=== PATIENT | female | born 1940 | race Caucasian/White ===

== ENCOUNTER 2020-03-20 09:37 | Outpatient (CLI) | payer MEDICARE, SELFPAY ==
--- NOTE | ~2020-03-20 | DEXA_ITS ---
Bone Density Report Name: Carlene Sprague Age: 79 Sex: Female Ethnicity: White Date of : 1940 Indication: postmenopausal; height loss; prior fracture; hysterectomy; Referring Provider: Marina Jiang Study: Bone densitometry was performed. Exam Date: March 20, 2020 Accession number: [id number] Bone Density: Region BMD T-score Z-score Classification AP Spine (L1-L4) 0.991 -0.5 2.0 Normal Femoral Neck (Left) 0.624 -2.0 0.2 Osteopenia Total Hip (Left) 0.813 -1.1 0.9 Osteopenia Total Hip Bilateral Avg 0.796 -1.3 0.8 Osteopenia Femoral Neck (Right) 0.701 -1.3 0.9 Osteopenia Total Hip (Right) 0.777 -1.4 0.6 Osteopenia World Health Organization criteria for BMD impression classify patients as: Normal (T-score at or above -1.0), Osteopenia (T-score between -1.0 and -2.5), or Osteoporosis (T-score at or below -2.5). 10-year Fracture Risk(1): Major Osteoporotic Fracture 21% Hip Fracture 7.9% Reported Risk Factors: [place] (), Neck BMD=0.624, BMI=29.3, previous fracture, smoking (1) FRAX(R) Version 3.08. Fracture probability calculated for an untreated patient. Fracture probability may be lower if the patient has received treatment. Clinical Information Provided by Patient: Has had a low trauma fracture Smokes Has used the following medications: Vitamin D Has the following medical conditions: Hysterectomy Patient maximum height was 65 Menopause Age: 52 Drinks caffeinated beverages Onset of menses at age 15 Number of children 2 Impression: The patient has low bone mass, based on the Left Femoral Neck T-score. The patient has an estimated ten-year risk of hip fracture of 7.9% and an estimated ten-year risk of major fracture of 21%, based on the WHO FRAX algorithm. The patient has risk factors, including: smoking, previous fracture. Discussion: BONE DENSITY IS LOW AT ONE OR MORE SKELETAL SITES. THE PATIENT'S BMD AND CLINICAL RISK FACTORS CONTRIBUTE TO THIS PATIENT'S HIGH RISK OF FRACTURE. This patient's lowest T-score is low at one or more skeletal sites. It meets the World Health Organization's (WHO) criteria for ?low bone mass? (T-score between -1.0 and -2.5). The patient's 10-year risk of hip fracture and 10 year risk of a major osteoporotic fracture as calculated by FRAX exceeds the threshold where pharmacological therapy is recommended by the National Osteoporosis Foundation (NOF). However, all treatment decisions require clinical judgment and consideration of individual patient factors, including patient preferences, comorbidities, previous drug use, risk factors not captured in the FRAX model (e.g., frailty, falls, vitamin D deficiency, increased bone turnover, interval significant decline in bone density) and possible under or overestimation of fracture risk by FRAX. The patie
== END 2020-03-20 09:38 | disposition home or self-care (01) ==
LOC: ANHIMG 09:48
PROVIDERS: Visit Provider Family Medicine
DX: Z13.820 Encounter for screening for osteoporosis (principal); Z78.0 Asymptomatic menopausal state; M85.852 Other specified disorders of bone density and structure, left thigh; M85.851 Other specified disorders of bone density and structure, right thigh
CPT/HCPCS: 77080

== ENCOUNTER 2020-03-24 08:19 | Outpatient (CLI) | payer MEDICARE, SELFPAY ==
--- NOTE | 2020-03-24 09:05 | ECHO_ITS ---
Patient Info Name: Carlene Sprague Age: 79 years : 1940 Gender: Female Ht: 64 in Wt: 169 lbs BSA: 1.88 m2 HR: 83 bpm BP: 164 / 95 mmHg Technical Quality: Good Exam Date: 03/24/2020 9:22 AM Exam Location: [facility] Patient Status: Outpatient Admit Date: 03/24/2020 Staff Ordering Physician: Marina Jiang MD Die Sizer: Leonid Najera RDCS, RT Attending Provider: Marina Jiang MD Referring Physician: Apolinar VILLANUEVA; Exam Type: CA echo doppler color flow Study Info Indications I10 - Essential (primary) hypertension Complete two-dimensional, color flow and Doppler transthoracic echocardiogram is performed. Summary 1. Left ventricular chamber dimension is normal. 2. Left ventricular systolic function is normal, estimated at 60-65%. 3. The left ventricular diastolic function is grade I diastolic dysfunction. 4. E/e' 8 is minimally elevated. 5. Global longitudinal strain is slightly abnormal at -16.9%. 6. The mitral valve has mildly calcified annulus. 7. There is trace tricuspid valve regurgitation. Left Ventricle E/e' 8 is minimally elevated. Global longitudinal strain is slightly abnormal at -16.9%. Left ventricular chamber dimension is normal. Left ventricular systolic function is normal, estimated at 60-65%. The left ventricular diastolic function is grade I diastolic dysfunction. Right Ventricle Right ventricular chamber dimension is normal. Right ventricular systolic function is normal. Left Atria Left atrial chamber dimension is normal. Right Atria Right atrial chamber dimension is normal. Aortic Valve The aortic valve is trileaflet. There is no aortic valve stenosis. There is no aortic valve regurgitation. Pulmonic Valve There is no pulmonic regurgitation. Mitral Valve The mitral valve has mildly calcified annulus. There is no mitral valve stenosis. There is no mitral valve regurgitation. Tricuspid Valve There is trace tricuspid valve regurgitation. RVSP is not calculated due to an inadequate TR jet. Pericardium/Pleural There is no pericardial effusion. Inferior Vena Cava Normal inferior vena cava with >50% collapse upon inspiration consistent with normal right atrial pressure, 5 mmHg. Aorta The aortic root size at the sinus of Valsalva is normal. Left Ventricular Outflow Tract Name Value Normal LVOT 2D LVOT Diameter 2.0 cm LVOT Doppler LVOT Peak Gradient 4 mmHg LVOT Mean Gradient 2 mmHg LVOT VTI 22 cm LVOT VTI/AV VTI Ratio 1.2 LVOT Stroke Volume 69 ml LVOT CO 5.7 l/min LVOT CI 3.0 l/min/m2 Mitral Valve Name Value Normal MV Doppler MV Decel [place]
== END 2020-03-24 08:20 | disposition home or self-care (01) ==
PROVIDERS: Visit Provider Family Medicine
DX: I11.0 Hypertensive heart disease with heart failure (principal); E78.5 Hyperlipidemia, unspecified
CPT/HCPCS: 93306

== ENCOUNTER 2021-03-16 10:12 | Outpatient (CLI) | payer MEDICARE, SELFPAY ==
--- NOTE | ~2021-03-16 | MM_ITS ---
EXAMINATION: MM screening victoria BI w ciara HISTORY: Screening mammogram, family history of breast cancer in her sister. TECHNIQUE: Craniocaudal and mediolateral oblique 3-D tomosynthesis images were obtained and synthetic 2-D images were generated. CAD analysis was submitted and interpreted. COMPARISON: 06/26/2018, 07/04/2017, 06/22/2017, 06/14/2016 BREAST PARENCHYMAL COMPOSITION: There are scattered areas of fibroglandular density. FINDINGS: RIGHT BREAST: Asymmetry is present in the middle third of inner breast nipple,. LEFT BREAST: There is no evidence of suspicious mass, calcification, or architectural distortion to s uggest malignancy. There has been no significant interval change. IMPRESSION: 1. Right breast asymmetry. 2. Additional mammographic views and possible breast ultrasound are recommended. BI-RADS Category 0: Incomplete: Needs additional imaging evaluation. Reviewed, dictated and finalized at location A. IMPRESSION: 1. Right breast asymmetry. 2. Additional mammographic views and possible breast ultrasound are recommended . BI-RADS Category 0: Incomplete: Needs additional imaging evaluation.
== END 2021-03-16 10:13 | disposition home or self-care (01) ==
LOC: ANHIMG 10:17
PROVIDERS: PCP Family Medicine; Visit Provider Family Medicine
DX: Z12.31 Encounter for screening mammogram for malignant neoplasm of breast (principal); R92.8 Other abnormal and inconclusive findings on diagnostic imaging of breast
CPT/HCPCS: 77063; 77067

== ENCOUNTER 2021-04-09 14:20 | Emergency (ER) | payer MEDICARE, SELFPAY ==
[2021-04-09] VITALS (7 sets, daily range): BP systolic 88–130; BP diastolic 55–91; PULSE 58–67; RESP 14–17; TEMP 36.5–36.6; O2SAT 100
--- NOTE | ~2021-04-09 | CT_ITS ---
EXAMINATION: CT abdomen pelvis w con DATE: 04/09/2021 18:06 INDICATION: Epigastric pain TECHNIQUE: Computed tomography (CT) of the abdomen and pelvis was performed without intravenous contr ast. The dose-length product was 441.46 mGy-cm. Automated exposure control and iterative reconstructi on technique were employed. COMPARISON: None. FINDINGS: Lung bases are unremarkable. Heart size normal. No significant pleural or pericardial effus ion. Small hiatal hernia with thickening of the distal aspect of the esophagus, suspicious for esopha gitis. There is 2.6 cm left adrenal mass. There is jade-SMA and periceliac lymphadenopathy. There is left periaortic lymphadenopathy superior to the left renal artery measuring 1.6 cm. Gallbladder conta ins stones or sludge. The liver, spleen, right adrenal gland and kidneys are unremarkable. Gallbladde r is present. Normal appendix. Status post hysterectomy. No abnormal pelvic masses or fluid collectio ns. There is demineralization. There is lytic lesion in the right pelvis. There are heterogeneous are as of focal demineralization in the pelvis, suspicious for ostial lysis.. IMPRESSION: 1. Abnormal thickening of the distal esophagus, suspicious for esophagitis, possibly secondary to ref lux. 2: Upper abdominal lymphadenopathy, nonspecific. 3: At least one discrete and possible additional lytic lesions of the pelvis, suspicious for myeloma or metastatic disease. 4: Left adrenal mass measuring 2.6 cm. Recommend correlation with MRI. Reviewed, dictated and finalized at location A. IMPRESSION: 1. Abnormal thickening of the distal esophagus, suspicious for esophagitis, pos sibly secondary to reflux. 2: Upper abdominal lymphadenopathy, nonspecific. 3: At least one discrete and possible additional lytic lesions of the pelvis, s uspicious for myeloma or metastatic disease. 4: Left adrenal mass measuring 2.6 cm. Recommend correlation with MRI.
[2021-04-09 17:20] LABS: Basophils Percent Auto 0.3 % (0.2-1.2); Eosinophils Absolute Auto 0.1 K/mm3 (0-0.3); Eosinophils Percent Auto 1.5 % (0-4.4); Hematocrit 42.8 % (37.0-47.0); Hemoglobin 14.3 g/dL (12.0-15.0); Immature Granulocyte Absolute 0.03 K/mm3 (0.00-0.031); Immature Granulocyte Percent A 0.3 % (0-0.5); Lymphocytes Absolute Auto 1.97 K/mm3 (0.9-3.2); Lymphocytes Percent Auto 22.7 % (18.3-44.2); Mean Corpuscular HGB Conc 33.4 g/dl (32-36); Mean Corpuscular Hemoglobin 30.4 pg (26-34); Mean Corpuscular Volume 90.9 fl (80-100); Mean Platelet Volume 8.5 fl (7.4-10.4); Monocytes Absolute Auto 0.6 K/mm3 (0.1-0.6); Monocytes Percent Auto 6.9 % (2.6-8.5); Neutrophils Absolute Auto 5.9 K/mm3 (1.3-6.7); Neutrophils Percent Auto 68.3 % (45.5-73.1); Platelet Count Result 233 k/mm3 (150-375); Red Blood Count 4.71 M/mm3 (4.2-5.4); Red Cell Distribution Width 12.3 % (11.5-14.5); White Blood Count 8.7 K/mm3 (4.5-10.0)
[2021-04-09 17:34] LABS: Alanine Aminotransferase 12 U/L (4-35); Albumin Level 4.4 g/dL (3.5-5.1); Alkaline Phosphatase 81 U/L (38-126); Anion Gap 8 mmol/L (8-16); Aspartate Amino Transferase 25 U/L (14-36); Bilirubin,Total 0.7 mg/dL (0.2-1.3); Blood Urea Nitrogen 12 mg/dL (7-17); Calcium 10.1 mg/dL (8.4-10.2); Carbon Dioxide 30 mmol/L (22-30); Chloride 98 mmol/L (98-107); Estimated CRCL calculation 55 ml/min; Estimated Glomerular Filt Rate > 60; Glucose 103 mg/dL (65-105); Lipase 50 U/L (23-300); Potassium 4.2 mmol/L (3.4-5.0); Sodium 136 mmol/L (137-145)
--- NOTE | 2021-04-09 17:52 | PC.NURSE ---
Dr Shell aware of orthostatic BPs. Verbal order for one liter of NS, hung. Pt taken to CT scan, off floor.
--- NOTE | 2021-04-09 17:53 | PC.NURSE ---
Pt unable to void. Dr Shell aware, OK to wait for completion of NS bolus
[2021-04-09] MEDS: SODIUM CHLORIDE 0.9% IV 1,000 ML 1000 ML (17:54)
--- NOTE | 2021-04-09 18:47 | ED.GENADULT ---
HPI - General Adult General Chief complaint: Nausea/Vomiting/Diarrhea Stated complaint: vomiting Time Seen by Provider: 04/09/21 16:42 Source: patient, family and RN notes reviewed Mode of arrival: ambulatory Limitations: no limitations History of Present Illness HPI narrative: Patient is 80 years old white female presented to the ED with intermittent epigastric pain and intermittent vomiting, food sometimes dog and that Ayla sawdust with retrosternal discomfort lasted for few seconds, minutes or hours. Scheduled to have EGD by Dr. Ryan next week. Patient denies any fever, chills, shortness of breath or back pain. Patient is fully vaccinated for COVID-19. Currently patient is able to keep fluid down in the emergency room. History of GERD, on Nexium 40 mg once a day Related Data Home Medications Medication Instructions Recorded Confirmed albuterol sulfate 90 mcg/actuation 1 puff INHALATION Q4H PRN 09/08/20 03/30/21 aerosol inhaler cetirizine 10 mg tablet 10 mg PO DAILY tablet 09/08/20 03/30/21 aspirin 81 mg tablet,delayed 81 mg PO DAILY 03/09/21 03/30/21 release chlorthalidone 25 mg tablet 25 mg PO DAILY tablet 03/09/21 03/30/21 cholecalciferol (vitamin D3) 125 mcg PO DAILY 03/30/21 03/30/21 cyclobenzaprine 10 mg PO .qhs prn PRN 03/30/21 03/30/21 esomeprazole magnesium 40 mg PO DAILY 03/30/21 03/30/21 esomeprazole magnesium [Nexium] 40 mg PO DAILY 04/09/21 04/09/21 omega-3 fatty acids 1,500 mg PO DAILY 04/09/21 Allergies Allergy/AdvReac Type Severity Reaction Status Date / Time No Known Allergies Allergy Verified 04/09/21 14:42 Review of Systems Review of Systems: Narrative: CONSTITUTIONAL: Denies fever, chills, or sweats. EYES: Denies visual changes, redness, or discharge. ENT: Denies rhinorrhea, congestion, sore throat, or otalgia. CARDIOVASCULAR: Denies chest pain, palpitations, or edema. RESPIRATORY: Denies cough or dyspnea. GASTROINTESTINAL: Denies abdominal pain, nausea, vomiting, or diarrhea. GENITOURINARY: Denies dysuria or hematuria. SKIN: Denies rash or itching. MUSCULOSKELETAL: Denies back pain, joint pain, or myalgia. NEUROLOGIC: Denies headache, numbness, or weakness. PSYCHIATRIC: Denies anxiety or depression. [facility] Past Medical History Medical History Chronic neck and back pain Colon cancer screening Dysphagia Environmental allergies Epigastric pain Essential (primary) hypertension (~1994) GERD (gastroesophageal reflux disease) Hyperlipidemia, acquired Osteopenia of multiple sites Dexa scan 03/20/2020 Shingles (herpes zoster) polyneuropathy (~1997) Transient ischemic attack on medication 04/2016 Unspecified asthma, uncomplicated (~1983) Vitamin D deficiency Surgical History Surgical History S/P cataract surgery (~2014) S/P complete hysterectomy (~1994) S/p total knee replacement, bilateral (~2011) S/P urological surgery (~2014) Transobturator taping with cystoscopy. Family History Family History Father Hypertension Family history of diabetes mellitus in first degree relative Mother Hypertension Family history of diabetes mellitus in first degree relative Sibling Family history of osteoarthritis Family history of diabetes mellitus in first degree relative Social History Social History Smoking packs per day: 1 Smoking cigarettes per day: 20.0 Years smoked: 52 Smoking pack-years: 52.00 Smoking status: Former smoker Smoking end date: 10/02/11 Alcohol intake: current Alcohol use details: sparingly Substance use: never Substance use type: does not use Spiritual care concerns: No Exam Narrative: Exam Narrative: General appearance: Well-developed, well-nourished Skin: Normal color Head: Normocephalic, nontraumatic Eyes: Clear conjunc
== END 2021-04-09 19:32 | disposition home or self-care (01) ==
PROVIDERS: Emergency Provider Emergency Medicine; PCP Family Medicine
DX: K20.90 Esophagitis, unspecified without bleeding (principal); E27.9 Disorder of adrenal gland, unspecified; C79.51 Secondary malignant neoplasm of bone; Z79.82 Long term (current) use of aspirin; I10 Essential (primary) hypertension; K21.9 Gastro-esophageal reflux disease without esophagitis; E78.5 Hyperlipidemia, unspecified; M85.89 Other specified disorders of bone density and structure, multiple sites; Z86.73 Personal history of transient ischemic attack (TIA), and cerebral infarction without residual deficits; J45.909 Unspecified asthma, uncomplicated; E55.9 Vitamin D deficiency, unspecified; Z87.891 Personal history of nicotine dependence
CPT/HCPCS: 36415; 74177; 80053; 83690; 85025; 96360; 99284; J7030; Q9967

== ENCOUNTER 2021-04-13 02:39 | Day surgery (SDC) | payer MEDICARE, SELFPAY ==
[2021-03-30 10:33] VITALS: BMI 27.4
[2021-04-13 07:15] VITALS: BP 139/87; PULSE 62; RESP 18; TEMP 36.2; O2SAT 100
[2021-04-13] MEDS: LACTATED RINGERS 1,000 ML 150 ML IV CONT (07:30)
--- NOTE | 2021-04-13 08:05 | WPDANESEPPF ---
Anes - Initial Pre Proc Eval Procedure: Operation Date: 04/13/21 08:30 Proposed Procedures p Esophagogastroduodenoscopy - Maximiliano Lowe MD Date/Time: 04/13/21 08:05 Surgeon: Maximiliano Lowe MD Pre Op Diagnosis: dysphagia Patient Data Age: 80 Gender: F Height: 1.63 m Weight: 71.8 kg Last Vital Signs Temp 36.2 C L 04/13/21 07:15 Pulse 62 04/13/21 07:15 Resp 18 04/13/21 07:15 BP 139/87 04/13/21 07:15 Pulse Ox 100 04/13/21 07:15 Allergies Allergy/AdvReac Type Severity Reaction Status Date / Time No Known Allergies Allergy Verified 04/13/21 07:13 Home Medications Medication Instructions Recorded Confirmed Type fluticasone propionate 50 2 spray NASAL DAILY #15.8 ml 11/18/19 03/30/21 Rx mcg/actuation nasal spray,suspension simvastatin 20 mg tablet 20 mg PO DAILY #90 tablet 05/13/20 03/30/21 Rx albuterol sulfate 90 mcg/actuation 1 puff INHALATION Q4H PRN 09/08/20 03/30/21 History aerosol inhaler cetirizine 10 mg tablet 10 mg PO DAILY tablet 09/08/20 03/30/21 History lisinopril 10 mg tablet 10 mg PO DAILY #90 tablet 02/15/21 03/30/21 Rx metoprolol tartrate 25 mg tablet 25 mg PO BID #180 tablet 02/15/21 04/13/21 Rx aspirin 81 mg tablet,delayed 81 mg PO DAILY 03/09/21 03/30/21 History release chlorthalidone 25 mg tablet 25 mg PO DAILY tablet 03/09/21 03/30/21 History potassium chloride 20 mEq 20 meq PO DAILY #90 tablet 03/19/21 03/30/21 Rx tablet,extended release cholecalciferol (vitamin D3) 125 mcg PO DAILY 03/30/21 03/30/21 History cyclobenzaprine 10 mg PO .qhs prn PRN 03/30/21 03/30/21 History esomeprazole magnesium 40 mg PO DAILY 03/30/21 03/30/21 History esomeprazole magnesium [Nexium] 40 mg PO DAILY 04/09/21 04/09/21 History omega-3 fatty acids 1,500 mg PO DAILY 04/09/21 History Patient hx anesthesia problems: none Family hx anesthesia problems: none PMFSH Past Medical History Medical History Chronic neck and back pain Colon cancer screening Dysphagia Environmental allergies Epigastric pain Essential (primary) hypertension (~1994) GERD (gastroesophageal reflux disease) Hyperlipidemia, acquired Osteopenia of multiple sites Dexa scan 03/20/2020 Shingles (herpes zoster) polyneuropathy (~1997) Transient ischemic attack on medication 04/2016 Unspecified asthma, uncomplicated (~1983) Vitamin D deficiency Surgical History Surgical History S/P cataract surgery (~2014) S/P complete hysterectomy (~1994) S/p total knee replacement, bilateral (~2011) S/P urological surgery (~2014) Transobturator taping with cystoscopy. Family History Family History Father Hypertension Family history of diabetes mellitus in first degree relative Mother Hypertension Family history of diabetes mellitus in first degree relative Sibling Family history of osteoarthritis Family history of diabetes mellitus in first degree relative Social History Social History Smoking packs per day: 1 Smoking cigarettes per day: 20.0 Years smoked: 52 Smoking pack-years: 52.00 Smoking status: Former smoker Smoking end date: 10/02/11 Alcohol intake: current Alcohol use details: sparingly Substance use: never Substance use type: does not use Living arrangements: alone Spiritual care concerns: No Anes - Eval Final PreProcedure Day of Procedure 04/13/21 08:05 Patient weight: overweight Heart: regular rate and rhythm Lungs: clear to auscultation and normal air movement Airway: Mallampati scale class III Neurological: alert and oriented Last oral intake: >/= 8 hours ASA classification: III Emergent: no Anesthetic plan: proceed Anesthesia type and monitoring: general GIVS and standard monitoring Informed Consent: The patient's anes
--- NOTE | 2021-04-13 08:43 | PM.HPGS ---
History of Present Illness History of Present Illness Consent: Risks, benefits, and alternatives have been discussed and questions answered. Patient agrees to proceed with procedure. Chief complaint: dysphagia Narrative: Carlene Sprague is a 80 year old female with gerd on nexium but progressive dysphagia to solids, actually recently came to ER, CT scan showed esophagitis. Never had EGD Review of Systems Constitutional: Constitutional: Denies headache(s) and Denies weakness Eyes: Eyes: Denies blurry vision ENT: Reports Normal hearing present, Denies headache(s) and Denies neck pain Cardiovascular: Cardiovascular: Denies chest pain and Denies dyspnea Respiratory: Respiratory: Denies dyspnea Gastrointestinal: Gastrointestinal: Reports no additional gastrointestinal complaints Genitourinary: Genitourinary: Denies dysuria Musculoskeletal: Musculoskeletal: Denies neck pain Integumentary/Breasts: Skin/Breast: Denies dry skin Neurologic: Reports Normal hearing present, Denies headache(s) and Denies weakness Psychiatric: Psychiatric: Denies anxiety Endocrine: Endocrine: Denies change in body appearance Hematologic/Lymphatic: Hematologic/Lymphatic: Denies easy bleeding Allergic/Immunologic: Allergic/Immunologic: Denies urticaria PMFSH Past Medical History Medical History Chronic neck and back pain Colon cancer screening Dysphagia Environmental allergies Epigastric pain Essential (primary) hypertension (~1994) GERD (gastroesophageal reflux disease) Hyperlipidemia, acquired Osteopenia of multiple sites Dexa scan 03/20/2020 Shingles (herpes zoster) polyneuropathy (~1997) Transient ischemic attack on medication 04/2016 Unspecified asthma, uncomplicated (~1983) Vitamin D deficiency Surgical History Surgical History S/P cataract surgery (~2014) S/P complete hysterectomy (~1994) S/p total knee replacement, bilateral (~2011) S/P urological surgery (~2014) Transobturator taping with cystoscopy. Family History Family History Father Hypertension Family history of diabetes mellitus in first degree relative Mother Hypertension Family history of diabetes mellitus in first degree relative Sibling Family history of osteoarthritis Family history of diabetes mellitus in first degree relative Social History Social History Smoking packs per day: 1 Smoking cigarettes per day: 20.0 Years smoked: 52 Smoking pack-years: 52.00 Smoking status: Former smoker Smoking end date: 10/02/11 Alcohol intake: current Alcohol use details: sparingly Substance use: never Substance use type: does not use Living arrangements: alone Spiritual care concerns: No Meds Home Medications and Allergies Home Medications Medication Instructions Recorded Confirmed Type fluticasone propionate 50 2 spray NASAL DAILY #15.8 ml 11/18/19 03/30/21 Rx mcg/actuation nasal spray,suspension simvastatin 20 mg tablet 20 mg PO DAILY #90 tablet 05/13/20 03/30/21 Rx albuterol sulfate 90 mcg/actuation 1 puff INHALATION Q4H PRN 09/08/20 03/30/21 History aerosol inhaler cetirizine 10 mg tablet 10 mg PO DAILY tablet 09/08/20 03/30/21 History lisinopril 10 mg tablet 10 mg PO DAILY #90 tablet 02/15/21 03/30/21 Rx metoprolol tartrate 25 mg tablet 25 mg PO BID #180 tablet 02/15/21 04/13/21 Rx aspirin 81 mg tablet,delayed 81 mg PO DAILY 03/09/21 03/30/21 History release chlorthalidone 25 mg tablet 25 mg PO DAILY tablet 03/09/21 03/30/21 History potassium chloride 20 mEq 20 meq PO DAILY #90 tablet 03/19/21 03/30/21 Rx tablet,extended release cholecalciferol (vitamin D3) 125 mcg PO DAILY 03/30/21 03/30/21 History cyclobenzaprine 10 mg PO .qhs prn PRN 03/30/21 03/30/21 History esomeprazole magnesium 40 mg PO NGHIA
[2021-04-13 09:10] VITALS: BP 93/49; PULSE 59; RESP 28; O2SAT 100
[2021-04-13 09:20] VITALS: BP 126/58; PULSE 55; RESP 16; O2SAT 99
[2021-04-13 09:30] VITALS: BP 146/65; PULSE 52; RESP 19; O2SAT 99
== END 2021-04-13 09:51 | disposition home or self-care (01) ==
PROVIDERS: PCP Family Medicine; Visit Provider Internal Medicine Gastroenterology
PROC: 0DJ08ZZ Inspection of Upper Intestinal Tract, Via Natural or Artificial Opening Endoscopic (ICD-10-PCS; CPT 43235; principal; 2021-04-13 08:30)
DX: C15.5 Malignant neoplasm of lower third of esophagus (principal); K44.9 Diaphragmatic hernia without obstruction or gangrene; K21.00 Gastro-esophageal reflux disease with esophagitis, without bleeding; R13.10 Dysphagia, unspecified; E78.5 Hyperlipidemia, unspecified; I10 Essential (primary) hypertension; Z86.73 Personal history of transient ischemic attack (TIA), and cerebral infarction without residual deficits; E55.9 Vitamin D deficiency, unspecified; J45.909 Unspecified asthma, uncomplicated; Z79.51 Long term (current) use of inhaled steroids; Z79.82 Long term (current) use of aspirin; Z87.891 Personal history of nicotine dependence
CPT/HCPCS: 43249; 88305; 88342; C1726; J2001; J2704; J7120

== ENCOUNTER 2021-05-09 14:42 | Observation (INO) | payer MEDICARE, SELFPAY ==
[2021-05-09] VITALS (7 sets, daily range): BP systolic 90–132; BP diastolic 40–92; PULSE 67–74; RESP 16–18; TEMP 36.2–36.7; O2SAT 97–100; BMI 24.7
--- NOTE | ~2021-05-09 | CT_ITS ---
EXAMINATION: CT biopsy bone deep DATE: 05/11/2021 13:25 INDICATION: Lytic lesion in right ilium. TECHNIQUE: The procedure including the risks, benefits, and alternatives was discussed with the patie nt. Risks discussed included bleeding and infection. The patient verbalized understanding of the risk s and agreed to proceed. The skin overlying the right ilium was prepped and draped in usual sterile fashion. Anesthetic was administered with 1% lidocaine subcutaneously. An 11-gauge needle was insert ed into the right ilium under CT guidance. The stylet was removed, and an 18-gauge core biopsy needle was used to acquire 3 samples. The mA was adjusted according to patient size. Iterative reconstructi on technique was employed. The dose-length product was 179.88 mGy-cm. The needle was removed and the entry site was cleaned and dressed. There were no immediate complications. FINDINGS: CT images demonstrate the outer needle tip adjacent to a 2.6 cm lytic lesion in right ilium . IMPRESSION: 1. CT-guided core needle biopsy of a 2.6 cm lytic lesion in right ilium, worsened from 1.8 cm on 04/09. Reviewed, dictated and finalized at location A. IMPRESSION: 1. CT-guided core needle biopsy of a 2.6 cm lytic lesion in right ilium, worse jolly from 1.8 cm on 04/09/2021.
--- NOTE | ~2021-05-09 | XR_ITS ---
EXAMINATION: XR fl guide central line place DATE: 05/11/2021 14:12 INDICATION: Port catheter insertion TECHNIQUE: A single fluoroscopic spot image of the upper chest was obtained during procedure performe d by Dr. Wilder. Radiologist was not present for the imaging or procedure. The amount of fluoroscopy time used during this procedure was 0.3 minutes. FINDINGS: Right internal jugular central venous port catheter with distal tip extending at least to t he caudal superior vena cava with distal tip extending below the inferior margin of the [id number] . No pneumothorax at the bilateral upper lung zones. IMPRESSION: 1. Right internal jugular central venous catheter which extends to at least the inferior vena cava wi th distal tip not visualized. Reviewed, dictated and finalized at location A. IMPRESSION: 1. Right internal jugular central venous catheter which extends to at least the inferior vena cava with distal tip not visualized.
--- NOTE | ~2021-05-09 | XR_ITS ---
EXAMINATION: XR chest port-a-cath/central INDICATION: Port-A-Cath insertion TECHNIQUE: Portable AP chest at 1436 hours COMPARISON: 03/11/2016 FINDINGS: A right internal jugular Port-A-Cath has been inserted which ends with its tip in the midsu perior vena cava. There is no pneumothorax. The lungs are free of acute opacities. The cardiomediasti nal silhouette is normal. There is levocurvature of the upper thoracic spine. IMPRESSION: 1. Right internal jugular Port-A-Cath insertion, no pneumothorax, no acute cardiopulmonary abnormalit y. Reviewed, dictated and finalized at location B. IMPRESSION: 1. Right internal jugular Port-A-Cath insertion, no pneumothorax, no acute card iopulmonary abnormality.
[2021-05-09 15:31] LABS: Basophils Percent Auto 0.4 % (0.2-1.2); Eosinophils Absolute Auto 0.2 K/mm3 (0-0.3); Eosinophils Percent Auto 2.7 % (0-4.4); Hematocrit 41.8 % (37.0-47.0); Hemoglobin 14.1 g/dL (12.0-15.0); Immature Granulocyte Absolute 0.03 K/mm3 (0.00-0.031); Immature Granulocyte Percent A 0.4 % (0-0.5); Lymphocytes Absolute Auto 1.41 K/mm3 (0.9-3.2); Lymphocytes Percent Auto 19.2 % (18.3-44.2); Mean Corpuscular HGB Conc 33.7 g/dl (32-36); Mean Corpuscular Hemoglobin 29.9 pg (26-34); Mean Corpuscular Volume 88.7 fl (80-100); Mean Platelet Volume 8.5 fl (7.4-10.4); Monocytes Absolute Auto 0.5 K/mm3 (0.1-0.6); Monocytes Percent Auto 7.1 % (2.6-8.5); Neutrophils Absolute Auto 5.2 K/mm3 (1.3-6.7); Neutrophils Percent Auto 70.2 % (45.5-73.1); Platelet Count Result 257 k/mm3 (150-375); Red Blood Count 4.71 M/mm3 (4.2-5.4); Red Cell Distribution Width 11.9 % (11.5-14.5); White Blood Count 7.3 K/mm3 (4.5-10.0)
[2021-05-09 15:43] LABS: Alanine Aminotransferase 14 U/L (4-35); Albumin Level 4.2 g/dL (3.5-5.1); Alkaline Phosphatase 95 U/L (38-126); Anion Gap 11 mmol/L (8-16); Aspartate Amino Transferase 27 U/L (14-36); Bilirubin,Total 0.5 mg/dL (0.2-1.3); Blood Urea Nitrogen 8 mg/dL (7-17); Calcium 10.3 mg/dL (8.4-10.2); Carbon Dioxide 29 mmol/L (22-30); Chloride 95 mmol/L (98-107); Estimated CRCL calculation 61 ml/min; Estimated Glomerular Filt Rate > 60; Glucose 108 mg/dL (65-110); Lipase 44 U/L (23-300); Potassium 3.6 mmol/L (3.4-5.0); Sodium 135 mmol/L (137-145)
--- NOTE | 2021-05-09 17:19 | PC.NURSE ---
Patient states she is still unable to urinate because there is nothing in me.
--- NOTE | 2021-05-09 18:35 | ED.NAVMDI ---
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 intake due to difficulty swallowing even though she is on a liquid diet Additionally she spits up or coughs up or vomits mucousy saliva and residual food several times a day Related Data Home Medications Medication Instructions Recorded Confirmed albuterol sulfate 90 mcg/actuation 1 puff INHALATION Q4H PRN 09/08/20 03/30/21 aerosol inhaler cetirizine 10 mg tablet 10 mg PO DAILY tablet 09/08/20 03/30/21 aspirin 81 mg tablet,delayed 81 mg PO DAILY 03/09/21 03/30/21 release chlorthalidone 25 mg tablet 25 mg PO DAILY tablet 03/09/21 03/30/21 cholecalciferol (vitamin D3) 125 mcg PO DAILY 03/30/21 03/30/21 cyclobenzaprine 10 mg PO .qhs prn PRN 03/30/21 03/30/21 esomeprazole magnesium 40 mg PO DAILY 03/30/21 03/30/21 omega-3 fatty acids 1,500 mg PO DAILY 04/09/21 Allergies Allergy/AdvReac Type Severity Reaction Status Date / Time No Known Allergies Allergy Verified 04/13/21 07:13 Review of Systems Review of Systems: All systems reviewed & are unremarkable except as noted in HPI and below Constitutional: Constitutional: Reports no additional constitutional complaints, Denies chills, Reports fatigue, Denies fever(s), Denies headache(s) and Reports weakness Eyes: Eyes: Reports no additional eye complaints and Denies change in vision ENT: Denies headache(s) and Denies sore throat Cardiovascular: Cardiovascular: Denies chest pain and Denies dyspnea Respiratory: Respiratory: Denies cough and Denies dyspnea Gastrointestinal: Gastrointestinal: Denies abdominal pain, Reports heartburn, Denies diarrhea, Reports nausea and Reports vomiting Genitourinary: Genitourinary: Denies urinary frequency and Denies dysuria Musculoskeletal: Musculoskeletal: Denies deformity, Denies arthralgias, Denies joint swelling and Denies numbness Integumentary/Breasts: Skin/Breast: Denies rash and Denies wounds Neurologic: Denies headache(s), Denies focal weakness and Denies numbness Psychiatric: Psychiatric: Reports no additional psychiatric complaints Endocrine: Endocrine: Reports no additional endocrine complaints Hematologic/Lymphatic: Hematologic/Lymphatic: Reports no additional hematologic/lymphatic complaints Allergic/Immunologic: Allergic/Immunologic: Reports no additional allergic/immunologic complaints [facility] Past Medical History Medical History (Updated 05/09/21 @ 18:41 by Manas Ardon MD) Chronic neck and back pain Colon cancer screening Dysphagia Environmental allergies Epigastric pain Esophageal mass Essential (primary) hypertension (~1994) GERD (gastroesophageal reflux disease) Hyperlipidemia, acquired Osteopenia of multiple sites Dexa scan 03/20/2020 Shingles (herpes zoster) polyneuropathy (~1997) Transient ischemic attack on medication 04/2016 Unspecified asthma, uncomplicated (~1983) Vitamin D deficiency Surgical History Surgical History S/P cataract surgery (~2014) S/P complete hysterectomy (~1994) S/p total knee replacement, bilateral (~2011) S/P urological surgery (~2014) Transobturator taping with cystoscopy. Family History Family History Alyssia
--- NOTE | 2021-05-09 20:16 | PC.NURSE ---
pt states she in unable to urinate at this time.
--- NOTE | 2021-05-09 21:54 | PC.NURSE ---
Pt conts to state that she is not able to urinate at this time.
--- NOTE | 2021-05-09 23:00 | PM.IMHP ---
H&P: HPI History of Present Illness Date/Time: 05/09/21 23:00 Chief Complaint: Difficulty swallowing. Narrative: This is a very pleasant 80-year-old female who fairly recently was found to have a large mass in the lower 3rd of her esophagus which is currently in the process of being worked up who presented to the emergency department earlier today via private vehicle from home for evaluation of difficulty swallowing. She had an EGD done on 04/13/[address] Lowe which showed the mass. 2 biopsies were obtained, 1 of which showed adenocarcinoma, intestinal type. It looks like the esophagus was dilated and she was referred to [place] for endoscopic ultrasound for staging and perhaps further dilation or stent placement. The patient tells me that the growth had grown on that endoscopic ultrasound though she does not believe any intervention was undertaken. It is my understanding that she is set to have a PET scan in the coming week and is being seen by Dr. Sow as well, who hopes to start chemotherapy soon. Since her initial EGD on 04/13 she has been on the liquid diet but she has been having increasing difficulties staying hydrated. She denies concerns for aspiration but it sounds like she is occasionally spitting upper coughing up saliva and residual food several times a day. She is also feeling a bit weak and lightheaded. Review of Systems Review of Systems: 12 systems were reviewed with pertinent positives and negatives as per HPI. No fever, chills, or sweats. She denies recent cold and flu symptoms no cough or shortness of breath. No known exposure to those positive for COVID-19. She began having issues swallowing in January and since that time she has lost nearly 25 lb. No chest pain or pleuritic pain. She denies melena and hematochezia. Except as documented, all other systems were reviewed and are negative. [facility] Past Medical History Medical History Barretts esophagus Chronic neck and back pain Esophageal cancer (~04/13/21) Essential (primary) hypertension (~1994) Gastroesophageal reflux disease Hyperlipidemia, acquired Osteopenia of multiple sites (~03/20/20) Shingles (herpes zoster) polyneuropathy (~1997) Transient ischemic attack on medication (~04/2016) Unspecified asthma, uncomplicated (~1983) Vitamin D deficiency Surgical History Surgical History S/P cataract surgery (~2014) S/P complete hysterectomy (~1994) S/p total knee replacement, bilateral (~2011) S/P urological surgery (~2014) Transobturator taping with cystoscopy. Family History Family History Father Family history of diabetes mellitus in first degree relative Hypertension Mother Family history of diabetes mellitus in first degree relative Hypertension Sibling Family history of osteoarthritis Family history of diabetes mellitus in first degree relative Esophageal adenocarcinoma Lymph node cancer Social History Social History (Updated 05/10/21 @ 00:58 by Jaja Arcos PA-C) Social History: Surrogate decision maker: Nubia Leal, daughter. Code status: Full code. Smoking packs per day: 1 Smoking cigarettes per day: 20.0 Years smoked: 52 Smoking pack-years: 52.00 Smoking status: Former smoker Smoking end date: 10/02/11 Alcohol intake: current Drinks per week: 0 Alcohol use details: Sparingly. Substance use: never Substance use type: does not use Additional living arrangements comments: The patient has been for 5 years. She lives in her own home in [place]. Daughter lives nearby. Occupation/Education: retired Meds Home Medications and Allergies Home Medications Medication Instructions Recorded Confirmed Type fluticasone propionate 50 2 spray NASAL DAILY #15.8 ml 11/18/19 05/09/21 Rx mcg/actuation nasal spr
--- NOTE | 2021-05-09 23:00 | ADMGEN ---
This patient, Carlene Sprague, was admitted to [facility] Surg Room 303-01. Patient/family oriented to hospital policies and general routines including ID bracelet, bed and alarms, visiting hours, pain management, procedures, bathroom and other care routines, personal items, smoking policy, room service/diet, and visiting hours. Information on how to activate the Rapid Response Team has been discussed. Patient/Family are encouraged to report perceived risks to care and to ask questions if they do not understand what they are told or what they should do.
[2021-05-09] MEDS: LACTATED RINGERS 1,000 ML 150 ML IV CONT (23:11)
[2021-05-10 01:10] LABS: Add Urine Microscopic? YES; Appearance Urine Clear (Clear); Bilirubin Urine Negative (Negative); Blood Urine Negative (Negative); Color Urine Yellow (Yellow); Glucose Urine UA Negative (Negative); Ketones Urine 1+ mg/dL (Negative); Leukocyte Esterase Ur Negative LEU/UL (Negative); Mucus Urine Rare /lpf; Nitrate Urine Negative (Negative); Protein Urine Negative (Negative); RBC Urine 0-2 /hpf (0-2); Specific Grav Ur 1.017 (1.001-1.035); WBC Urine 0-3 /hpf
[2021-05-10 05:27] VITALS: BP 123/72; PULSE 64; RESP 18; TEMP 35.9; O2SAT 100
[2021-05-10 07:00] LABS: Anion Gap 9 mmol/L (8-16); Blood Urea Nitrogen 10 mg/dL (7-17); Calcium 9.8 mg/dL (8.4-10.2); Carbon Dioxide 29 mmol/L (22-30); Chloride 96 mmol/L (98-107); Estimated CRCL calculation 57 ml/min; Estimated Glomerular Filt Rate > 60; Glucose 85 mg/dL (65-110); Magnesium 1.8 mg/dL (1.6-2.3); Potassium 3.7 mmol/L (3.4-5.0); Sodium 134 mmol/L (137-145)
[2021-05-10] MEDS: PANTOPRAZOLE SODIUM IV 40 MG VIAL IV PUSH ×2 (08:43→16:45)
[2021-05-10 11:39] VITALS: BMI 25.1
[2021-05-10] MEDS: LACTATED RINGERS 1,000 ML 75 ML IV CONT (12:07)
--- NOTE | 2021-05-10 12:39 | PDONCCN ---
HPI - Date of Consult Date/Time: 05/10/21 12:39 Requesting Physician: Carlos Alberto Hale DO Primary Care Provider: Delaney Baum MD - Consult Narrative Reason for consult: Metastatic esophageal cancer Narrative: Carlene Sprague is a 80 year old female with diagnosis of adenocarcinoma of esophagus with recent EGD and biopsy done on April 13, 2021. Patient was seen in the office recently and PET scan was ordered a CT scan showed adrenal gland mass as well as possible lytic lesion in the pelvis area. She is complaining of the right hip pain. Patient came into the hospital with nausea vomiting and difficulty swallowing. She denies any abdominal pain. She has some right hip pain. Complaining of tiredness and fatigue. Review of Systems - Review of Systems All systems reviewed & are unremarkable except as noted in HPI and bel - Neurologic Reports weakness, Denies headache(s), Denies focal weakness, Denies numbness PMFSH Medical History: Medical History (Last Reviewed 05/10/21 @ 00:58 by Jaja Arcos PA-C) Barretts esophagus Chronic neck and back pain Esophageal cancer Onset Date: ~04/13/21 Essential (primary) hypertension Onset Date: ~1994 Gastroesophageal reflux disease Hyperlipidemia, acquired Osteopenia of multiple sites Onset Date: ~03/20/20 Shingles (herpes zoster) polyneuropathy Onset Date: ~1997 Transient ischemic attack on medication Onset Date: ~04/2016 Unspecified asthma, uncomplicated Onset Date: ~1983 Vitamin D deficiency Surgical History: Surgical History (Last Reviewed 05/09/21 @ 23:49 by Jaja Arcos PA-C) S/P cataract surgery Onset Date: ~2014 S/P complete hysterectomy Onset Date: ~1994 S/p total knee replacement, bilateral Onset Date: ~2011 S/P urological surgery Onset Date: ~2014 Transobturator taping with cystoscopy. Family History: Family History (Last Reviewed 05/09/21 @ 23:49 by Jaja Arcos PA-C) Father Family history of diabetes mellitus in first degree relative Hypertension Mother Family history of diabetes mellitus in first degree relative Hypertension Sibling Family history of osteoarthritis Family history of diabetes mellitus in first degree relative Esophageal adenocarcinoma Lymph node cancer - Social History Social History: Social History (Last Updated 05/10/21 @ 00:58 by Jaja Arcos PA-C) Alcohol Use: Alcohol intake: current Drinks per week: 0 Alcohol use details: Sparingly. Substance Use: Substance use: never Substance use type: does not use Others: Spiritual care concerns: No Oppucation/Education: Occupation/Education: retired Smoking Status: Smoking status: Former smoker Smoking end date: 10/02/11 Approximate Smoking End Date: August 2012 Smoking Pack-years: Smoking packs per day: 1 Smoking cigarettes per day: 20.0 Years smoked: 52 Smoking pack-years: 52.00 Meds Home Medications Medication Instructions Recorded Confirmed Type fluticasone propionate 50 2 spray NASAL DAILY #15.8 ml 11/18/19 05/09/21 Rx mcg/actuation nasal spray,suspension simvastatin 20 mg tablet 20 mg PO DAILY #90 tablet 05/13/20 05/09/21 Rx albuterol sulfate 90 mcg/actuation 1 puff INHALATION Q4H PRN 09/08/20 05/09/21 History aerosol inhaler cetirizine 10 mg tablet 10 mg PO DAILY tablet 09/08/20 05/09/21 History lisinopril 10 mg tablet 10 mg PO DAILY #90 tablet 02/15/21 05/09/21 Rx metoprolol tartrate 25 mg tablet 25 mg PO BID #180 tablet 02/15/21 05/09/21 Rx aspirin 81 mg tablet,delayed 81 mg PO DAILY 03/09/21 05/09/21 History release chlorthalidone 25 mg tablet 25 mg PO DAILY tablet 03/09/21 05/09/21 History potassium chloride 20 mEq 20 meq PO DAILY #90 tablet 03/19/21 05/09/21 Rx tablet,extended release cholecalciferol (vitamin D3) 125 mcg PO DAILY 03/30/21 05/09/21 History cyclobenzaprine 10 mg PO HS PRN 03/03
--- NOTE | 2021-05-10 13:15 | PM.IMPN ---
Progress Note: A&P Assessment and Plan (1) Dysphagia: Code(s): R13.10 - Dysphagia, unspecified Status: Acute Assessment and Plan: 05/10/21 13:15 patient with a lump in her neck patient had a EGD suspect metastatic adeno carcinoma of esophageal, patient states difficulty swallowing and now on clear liquid only, on April [address] scan which showed 2.6 cm left adrenal mass, and a lytic lesion and pelvis and upper abdominal lymphadenopathy, patient seen by oncologist ordered CT-guided biopsy of the adrenal gland mass as well as lytic lesion to further evaluate metastasis also port placement and patient will be seen as outpatient for chemotherapy, patient will be seen GI may have EGD to dilate esophagus placed stent. will continue to monitor and further recommendation to follow (2) Dehydration: Code(s): E86.0 - Dehydration Status: Acute Assessment and Plan: will hydrate patient and monitor (3) Esophageal cancer: Code(s): C15.9 - Malignant neoplasm of esophagus, unspecified Status: Acute Assessment and Plan: patient is seen by oncology plan is above (4) Gastroesophageal reflux disease: Code(s): K21.9 - Gastro-esophageal reflux disease without esophagitis Status: Acute Assessment and Plan: most likely secondary esophageal mass, resulting in GERD, will start the patient on PPI, patient will be seen by GI and will have EGD to dilate esophagus and may placed stent. (5) Essential (primary) hypertension: Onset Date: ~1994 Code(s): I10 - Essential (primary) hypertension Status: Acute Assessment and Plan: continue home regimen Additional Plan The patient feels that she is getting dehydrated and is having increasing difficulties with her liquid diet due to dysphagia. She is tolerating her secretions at this time though on occasion she will cough up liquids and mucus. She denies concerns for aspiration. Dr. Lowe has been consulted and his input is appreciated. She will be NPO for now and I will ask the nurses to elevate the head of her bed with aspiration precautions. Home medications will be placed on hold. Blood pressures were reviewed and they are stable. Continue judicious IV fluid rehydration overnight. Subjective Date/time seen: 05/10/21 13:15 patient with a lump in her neck patient had a EGD suspect metastatic adeno carcinoma of esophageal, patient states difficulty swallowing and now on clear liquid only, on April [address] scan which showed 2.6 cm left adrenal mass, and a lytic lesion and pelvis and upper abdominal lymphadenopathy, patient seen by oncologist ordered CT-guided biopsy of the adrenal gland mass as well as lytic lesion to further evaluate metastasis also port placement and patient will be seen as outpatient for chemotherapy, patient will be seen GI may have EGD to dilate esophagus placed stent. will continue to monitor and further recommendation to follow Review of Systems Review of Systems: All systems reviewed & are unremarkable except as noted in HPI and below Exam Narrative: Patient is comfortable, NAD HEENT: eyes are clear and none icteric LUNGS: normal respiratory effort ABD: not distended Lower extremities: no edema SKIN: nonjaundiced Neuro: grossly intact normal speech. Objective Data Vital Signs Vital Signs: Vital Signs - 24 hr 05/09/21 15:10 05/09/21 17:17 05/09/21 20:18 Temperature 98.1 F Pulse Rate 69 67 73 Respiratory Rate 16 16 Blood Pressure 90/40 L 124/58 L 132/63 Pulse Oximetry 98 97 05/09/21 20:19 05/09/21 20:20 05/09/21 20:26 Temperature Pulse Rate 74 73 69 Respiratory Rate 18 Blood Pressure 110/63 103/92 H 123/58 L Pulse Oximetry 98 05/09/21 23:00 05/10/21 05:27 Temperature 97.2 F L 96.7 F L Pulse Rate 72 64 Respiratory Rate 18 18 Blood Pressure 131/65 123/72 Pulse Oximetry 100 100 Intake/Output Intake/Output: Int
[2021-05-10 14:00] VITALS: BP 123/55; PULSE 70; RESP 16; TEMP 36.3; O2SAT 98
--- NOTE | 2021-05-10 15:25 | PM.CNGS ---
Assessment and Plan Assessment and plan (1) Esophageal cancer: Onset Date: ~04/13/21 Code(s): C15.9 - Malignant neoplasm of esophagus, unspecified Status: Acute Assessment and Plan: Adenocarcinoma of esophagus, suspected to be metastatic. We have been asked by Oncology to place a Port-A-Cath for initiation of chemotherapy. Description of the procedure, risks, benefits, expected outcomes, and expected recovery were discussed with the patient in detail. All questions were answered. She is currently NPO and planning to have PEG-tube placement tomorrow by Dr. Ryan. I have discussed the case with Dr. Wilder and he plans to get her added onto the OR schedule over the next few days, depending on availability and coordinating with her other procedure. Thank you for allowing us to see the patient in consultation. (2) Dysphagia: Code(s): R13.10 - Dysphagia, unspecified Status: Acute Assessment and Plan: Having difficulty with tolerating liquids at this point. Reportedly, it is felt that she would not be a candidate for a stent. GI planning to place PEG tube tomorrow. (3) Gastroesophageal reflux disease: Code(s): K21.9 - Gastro-esophageal reflux disease without esophagitis Status: Acute (4) Essential (primary) hypertension: Onset Date: ~1994 Code(s): I10 - Essential (primary) hypertension Status: Acute Additional Plan I have discussed the patient's case and plan of care with Dr. Wilder. History of Present Illness Consult details Consult date: 05/10/21 Reason for consult: other (Port-A-Cath placement) Requesting physician: Harley Sow MD Narrative: This is a 80-year-old female with the recent diagnosis of adenocarcinoma of the esophagus with recent EGD and biopsy done on April 13, 2021. She has been following Dr. Sow as an outpatient. She had a CT scan that showed adrenal gland mass as well as possible lytic lesion in the pelvis area. She has a PET scan scheduled for . She reports having progressively worsening dysphagia and is now vomiting even after drinking Ensure and some thin liquids. She presented to the ER yesterday with complaints of worsening dysphagia, vomiting, and fatigue. The patient was admitted to the Hospitalist and Oncology was consulted. GI has also been consulted and is reportedly planning for PEG-tube placement tomorrow. Oncology has asked us to see the patient in consultation for Port-A-Cath placement in order to initiate chemotherapy for the suspected metastatic adenocarcinoma of the esophagus. She is now seen on the medical floor with no specific complaints. Review of Systems Review of Systems: All systems reviewed & are unremarkable except as noted in HPI and below PMFSH Past Medical History Medical History Barretts esophagus Chronic neck and back pain Esophageal cancer (~04/13/21) Essential (primary) hypertension (~1994) Gastroesophageal reflux disease Hyperlipidemia, acquired Osteopenia of multiple sites (~03/20/20) Shingles (herpes zoster) polyneuropathy (~1997) Transient ischemic attack on medication (~04/2016) Unspecified asthma, uncomplicated (~1983) Vitamin D deficiency Surgical History Surgical History S/P cataract surgery (~2014) S/P complete hysterectomy (~1994) S/p total knee replacement, bilateral (~2011) S/P urological surgery (~2014) Transobturator taping with cystoscopy. Family History Family History Father Family history of diabetes mellitus in first degree relative Hypertension Mother Family history of diabetes mellitus in first degree relative Hypertension Sibling Family history of osteoarthritis Family history of diabetes mellitus in first degree relative Esophageal adenocarcinoma Lymph node cancer Social History Social History (Rev
--- NOTE | 2021-05-10 15:42 | WPDGICN ---
Assessment and Plan Assessment and plan (1) Primary esophageal adenocarcinoma: Code(s): C15.9 - Malignant neoplasm of esophagus, unspecified Status: Acute Assessment and Plan: PET scan will be done as outpatient for definitive staging by oncology, she has not started treatment yet (2) Dysphagia: Code(s): R13.10 - Dysphagia, unspecified Status: Acute Assessment and Plan: ongoing nausea, vomiting and weight loss. She is agreeable to have PEG placement endoscopically tomorrow (3) Barretts esophagus: Code(s): K22.70 - Stover's esophagus without dysplasia Status: Acute (4) Nausea & vomiting: Code(s): R11.2 - Nausea with vomiting, unspecified Status: Acute (5) Weight loss: Code(s): R63.4 - Abnormal weight loss Status: Acute (6) Dehydration: Code(s): E86.0 - Dehydration Status: Acute Assessment and Plan: hydration, supportive care GI Consult Note Consult date/time: 05/10/21 15:42 Reason for consult: dysphagia, esophageal cancer HPI: Carlene Sprague is a 80 year old female who I saw her last time last month when I performed EGD for progression dysphagia that showed mass consistent with adenocarcinoma of esophagus, stricture dilated with TTS balloon 12-15mm. Then she completed EUS [facility] esophagus at [facility] (do not have report) and also CT scan that was reviewed and showed adrenal gland mass as well as possible lytic lesion in the pelvis area. She has seeing by oncology but awaiting to have PET scan as outpatient for definitive staging. In the meantime she has not been able to eat much, still having sensation that food is getting stuck and she was admitted for dehydration and inability to eat. Review of Systems Constitutional: Constitutional: Reports lethargy and Reports weight loss Eyes: Eyes: Denies blurry vision ENT: Reports Normal hearing present Cardiovascular: Cardiovascular: Denies chest pain Respiratory: Respiratory: Denies cough Gastrointestinal: Gastrointestinal: Reports nausea and Reports vomiting Genitourinary: Genitourinary: Denies hematuria Musculoskeletal: Musculoskeletal: Denies neck pain Comments: hip pain Integumentary/Breasts: Skin/Breast: Denies dry skin Neurologic: Denies confusion Psychiatric: Psychiatric: Denies confusion [facility] Past Medical History Medical History (Updated 05/10/21 @ 15:50 by Maximiliano Lowe MD) Barretts esophagus Chronic neck and back pain Esophageal cancer (~04/13/21) Essential (primary) hypertension (~1994) Gastroesophageal reflux disease Hyperlipidemia, acquired Osteopenia of multiple sites (~03/20/20) Primary esophageal adenocarcinoma Shingles (herpes zoster) polyneuropathy (~1997) Transient ischemic attack on medication (~04/2016) Unspecified asthma, uncomplicated (~1983) Vitamin D deficiency Weight loss Surgical History Surgical History S/P cataract surgery (~2014) S/P complete hysterectomy (~1994) S/p total knee replacement, bilateral (~2011) S/P urological surgery (~2014) Transobturator taping with cystoscopy. Family History Family History Father Family history of diabetes mellitus in first degree relative Hypertension Mother Family history of diabetes mellitus in first degree relative Hypertension Sibling Family history of osteoarthritis Family history of diabetes mellitus in first degree relative Esophageal adenocarcinoma Lymph node cancer Social History Social History Social History: Surrogate decision maker: Nubia Leal, daughter. Code status: Full code. Smoking packs per day: 1 Smoking cigarettes per day: 20.0 Years smoked: 52 Smoking pack-years: 52.00 Smoking status: Former smoker Smoking end date: 10/02/11 Alcohol intake: current Drinks per we
[2021-05-10 20:00] VITALS: PULSE 77; RESP 18; O2SAT 97
[2021-05-10 22:00] VITALS: BP 138/54; PULSE 77; RESP 18; TEMP 36.9; O2SAT 97
[2021-05-11] VITALS (17 sets, daily range): BP systolic 126–169; BP diastolic 50–84; PULSE 70–104; RESP 16–29; TEMP 36.2–37.7; O2SAT 95–100
[2021-05-11] MEDS: LACTATED RINGERS 1,000 ML 75 ML IV CONT ×2 (01:57→16:22)
[2021-05-11 06:16] LABS: Hematocrit 37.9 % (37.0-47.0); Hemoglobin 12.5 g/dL (12.0-15.0); Mean Corpuscular Hemoglobin 29.7 pg (26-34); Mean Platelet Volume 8.7 fl (7.4-10.4); Platelet Count Result 225 k/mm3 (150-375); Red Blood Count 4.21 M/mm3 (4.2-5.4); Red Cell Distribution Width 12.1 % (11.5-14.5); White Blood Count 7.6 K/mm3 (4.5-10.0)
[2021-05-11 06:23] LABS: Prothrombin Time 13.5 Seconds (11.1-14.7)
[2021-05-11 06:24] LABS: Partial Thromboplastin Time 29.4 SECONDS (22.3-36.8)
[2021-05-11 06:28] LABS: Anion Gap 12 mmol/L (8-16); Blood Urea Nitrogen 10 mg/dL (7-17); Calcium 9.9 mg/dL (8.4-10.2); Carbon Dioxide 23 mmol/L (22-30); Chloride 103 mmol/L (98-107); Estimated CRCL calculation 57 ml/min; Estimated Glomerular Filt Rate > 60; Glucose 65 mg/dL (65-110); Potassium 3.6 mmol/L (3.4-5.0); Sodium 138 mmol/L (137-145)
--- NOTE | 2021-05-11 08:04 | PC.NURSE ---
To GI Lab per w/c, IV on stand by. Report given to Vani.
[2021-05-11] MEDS: PANTOPRAZOLE SODIUM IV 40 MG VIAL IV PUSH ×2 (08:23→17:12)
[2021-05-11] MEDS: DEXTROSE 50% 25 GM/50 ML SYRINGE IV PUSH (08:37)
[2021-05-11 08:40] LABS: Glucose Point of Care 51 mg/dl (65-105)
[2021-05-11] MEDS: LACTATED RINGERS 1,000 ML 150 ML IV CONT (08:59)
--- NOTE | 2021-05-11 09:02 | WPDANESEPPF ---
Anes - Initial Pre Proc Eval Procedure: Operation Date: 05/11/21 13:30 Proposed Procedures p Insertion Hernandez Cath - Nam Wilder DO Operation Date: 05/11/21 14:30 Proposed Procedures p Esophagogastroduodenoscopy - Maximiliano Lowe MD s Percutaneous Endoscopic Gastrostomy - Maximiliano Lowe MD Date/Time: 05/11/21 09:02 Surgeon: Carlos Alberto Hale DO Pre Op Diagnosis: Esophageal Cancer,Nausea & Vomiting,Dehydration Patient Data Age: 80 Gender: F Height: 1.63 m Weight: 69.1 kg Last Vital Signs Temp 36.6 C 05/11/21 06:00 Pulse 70 05/11/21 06:00 Resp 18 05/11/21 06:00 BP 132/62 05/11/21 06:00 Pulse Ox 100 05/11/21 06:00 Allergies Allergy/AdvReac Type Severity Reaction Status Date / Time No Known Allergies Allergy Verified 05/11/21 09:01 Home Medications Medication Instructions Recorded Confirmed Type fluticasone propionate 50 2 spray NASAL DAILY #15.8 ml 11/18/19 05/09/21 Rx mcg/actuation nasal spray,suspension simvastatin 20 mg tablet 20 mg PO DAILY #90 tablet 05/13/20 05/09/21 Rx albuterol sulfate 90 mcg/actuation 1 puff INHALATION Q4H PRN 09/08/20 05/09/21 History aerosol inhaler cetirizine 10 mg tablet 10 mg PO DAILY tablet 09/08/20 05/09/21 History lisinopril 10 mg tablet 10 mg PO DAILY #90 tablet 02/15/21 05/09/21 Rx metoprolol tartrate 25 mg tablet 25 mg PO BID #180 tablet 02/15/21 05/09/21 Rx aspirin 81 mg tablet,delayed 81 mg PO DAILY 03/09/21 05/09/21 History release chlorthalidone 25 mg tablet 25 mg PO DAILY tablet 03/09/21 05/09/21 History potassium chloride 20 mEq 20 meq PO DAILY #90 tablet 03/19/21 05/09/21 Rx tablet,extended release cholecalciferol (vitamin D3) 125 mcg PO DAILY 03/30/21 05/09/21 History cyclobenzaprine 10 mg PO HS PRN 03/30/21 05/09/21 History omega-3 fatty acids 1,500 mg PO DAILY 04/09/21 05/09/21 History esomeprazole magnesium 40 mg 40 mg PO BID #60 cap 04/13/21 05/09/21 Rx capsule,delayed release Laboratory Tests 05/11/21 05/11/21 05/11/21 05:34 05:34 05:34 WBC 7.6 K/mm3 K/mm3 (4.5-10.0) RBC 4.21 M/mm3 M/mm3 (4.2-5.4) Hgb 12.5 g/dL g/dL (12.0-15.0) Hct 37.9 % % (37.0-47.0) MCV 90.0 fl fl (80-100) MCH 29.7 pg pg (26-34) MCHC 33.0 g/dl g/dl (32-36) RDW 12.1 % % (11.5-14.5) Plt Count 225 k/mm3 k/mm3 (150-375) MPV 8.7 fl fl (7.4-10.4) PT 13.5 Seconds Seconds (11.1-14.7) INR 1.0 APTT 29.4 SECONDS SECONDS (22.3-36.8) Sodium 138 mmol/L mmol/L (137-145) Potassium 3.6 mmol/L mmol/L (3.4-5.0) Chloride 103 mmol/L mmol/L (98-107) Carbon Dioxide 23 mmol/L mmol/L (22-30) Anion Gap 12 mmol/L mmol/L (8-16) BUN 10 mg/dL mg/dL (7-17) Creatinine 0.60 mg/dL L mg/dL (0.7-1.0) Estim Creat Clear Calc 57 ml/min ml/min Estimated GFR > 60 (59 - ) Glucose 65 mg/dL mg/dL (65-110) POC Capillary Glucose Calcium 9.9 mg/dL mg/dL (8.4-10.2) 05/11/21 08:23 WBC RBC Hgb Hct MCV MCH MCHC RDW Plt Count MPV PT INR APTT Sodium Potassium Chloride Carbon Dioxide Anion Gap BUN Creatinine Estim Creat Clear Calc Estimated GFR Glucose POC Capillary Glucose 51 mg/dl L* mg/dl (65-105) Calcium Patient hx anesthesia problems: none Family hx anesthesia problems: none [facility] Past Medical History Medical History Barretts esophagus Chronic neck and back pain Esophageal cancer (~04/13/21) Essential (primary) hypertension (~1994) Gastroesophageal reflux disease Hyperlipidemia, acquired Osteopenia of multiple sites (~
[2021-05-11 09:08] LABS: Glucose Point of Care 115 mg/dl (65-105)
[2021-05-11] MEDS: BENZOCAINE (*SP) 60 ML SPRAY CAN (HURRICAINE) 1 SPRAY MUCOUS MEM (09:49)
--- NOTE | 2021-05-11 10:50 | PC.NURSE ---
Returned from GI Lab. Report received from
--- NOTE | 2021-05-11 11:20 | PCDIET ---
Nutrition consult for tube feeding to start in 6 hours. Patient having PEG placed today. Recommend tube feedings of Jevity 1.2 at 25 ml/hr advancing 10 ml q 4 hours to goal rate of 70 ml/hr over 22 hours. Goal rate of tube feeding will be providing patient with 1848 kcals/85 gms protein/[address] will continue to monitor every Monday and Monday.
--- NOTE | 2021-05-11 11:50 | PC.NURSE ---
To CT scan for bone biopsy then to OR for PAC placement.
[2021-05-11] MEDS: LACTATED RINGERS 1,000 ML 30 ML IV CONT (13:10)
--- NOTE | 2021-05-11 13:19 | WPDANESEPPF ---
Anes - Initial Pre Proc Eval Procedure: Operation Date: 05/11/21 13:30 Proposed Procedures p Insertion Hernandez Cath - Nam Wilder DO Operation Date: 05/11/21 14:30 Proposed Procedures p Esophagogastroduodenoscopy - Maximiliano Lowe MD s Percutaneous Endoscopic Gastrostomy - Maximiliano Lowe MD Date/Time: 05/11/21 13:19 Surgeon: Carlos Alberto Hale DO Pre Op Diagnosis: Esophageal Cancer,Nausea & Vomiting,Dehydration Patient Data Age: 80 Gender: F Height: 1.63 m Weight: 69.1 kg Last Vital Signs Temp 97.5 F L 05/11/21 10:55 Pulse 75 05/11/21 10:55 Resp 16 05/11/21 10:55 BP 146/67 H 05/11/21 10:55 Pulse Ox 100 05/11/21 10:55 Allergies Allergy/AdvReac Type Severity Reaction Status Date / Time No Known Allergies Allergy Verified 05/11/21 09:01 Home Medications Medication Instructions Recorded Confirmed Type fluticasone propionate 50 2 spray NASAL DAILY #15.8 ml 11/18/19 05/09/21 Rx mcg/actuation nasal spray,suspension simvastatin 20 mg tablet 20 mg PO DAILY #90 tablet 05/13/20 05/09/21 Rx albuterol sulfate 90 mcg/actuation 1 puff INHALATION Q4H PRN 09/08/20 05/09/21 History aerosol inhaler cetirizine 10 mg tablet 10 mg PO DAILY tablet 09/08/20 05/09/21 History lisinopril 10 mg tablet 10 mg PO DAILY #90 tablet 02/15/21 05/09/21 Rx metoprolol tartrate 25 mg tablet 25 mg PO BID #180 tablet 02/15/21 05/09/21 Rx aspirin 81 mg tablet,delayed 81 mg PO DAILY 03/09/21 05/09/21 History release chlorthalidone 25 mg tablet 25 mg PO DAILY tablet 03/09/21 05/09/21 History potassium chloride 20 mEq 20 meq PO DAILY #90 tablet 03/19/21 05/09/21 Rx tablet,extended release cholecalciferol (vitamin D3) 125 mcg PO DAILY 03/30/21 05/09/21 History cyclobenzaprine 10 mg PO HS PRN 03/30/21 05/09/21 History omega-3 fatty acids 1,500 mg PO DAILY 04/09/21 05/09/21 History esomeprazole magnesium 40 mg 40 mg PO BID #60 cap 04/13/21 05/09/21 Rx capsule,delayed release Laboratory Tests 05/11/21 05/11/21 05/11/21 05:34 05:34 05:34 WBC 7.6 K/mm3 K/mm3 (4.5-10.0) RBC 4.21 M/mm3 M/mm3 (4.2-5.4) Hgb 12.5 g/dL g/dL (12.0-15.0) Hct 37.9 % % (37.0-47.0) MCV 90.0 fl fl (80-100) MCH 29.7 pg pg (26-34) MCHC 33.0 g/dl g/dl (32-36) RDW 12.1 % % (11.5-14.5) Plt Count 225 k/mm3 k/mm3 (150-375) MPV 8.7 fl fl (7.4-10.4) PT 13.5 Seconds Seconds (11.1-14.7) INR 1.0 APTT 29.4 SECONDS SECONDS (22.3-36.8) Sodium 138 mmol/L mmol/L (137-145) Potassium 3.6 mmol/L mmol/L (3.4-5.0) Chloride 103 mmol/L mmol/L (98-107) Carbon Dioxide 23 mmol/L mmol/L (22-30) Anion Gap 12 mmol/L mmol/L (8-16) BUN 10 mg/dL mg/dL (7-17) Creatinine 0.60 mg/dL L mg/dL (0.7-1.0) Estim Creat Clear Calc 57 ml/min ml/min Estimated GFR > 60 (59 - ) Glucose 65 mg/dL mg/dL (65-110) POC Capillary Glucose Calcium 9.9 mg/dL mg/dL (8.4-10.2) 05/11/21 05/11/21 08:23 09:05 WBC RBC Hgb Hct MCV MCH MCHC RDW Plt Count MPV PT INR APTT Sodium Potassium Chloride Carbon Dioxide Anion Gap BUN Creatinine Estim Creat Clear Calc Estimated GFR Glucose POC Capillary Glucose 51 mg/dl L* mg/dl 115 mg/dl H mg/dl (65-105) (65-105) Calcium Patient hx anesthesia problems: none Family hx anesthesia problems: none PMFSH Past Medical History Medical History Barretts esophagus Chronic neck and back pain Esophageal cancer (~04/13/21) Essential (prim
--- NOTE | 2021-05-11 13:20 | WPDHPUPDATE1 ---
History and Physical Update Update Date/Time: 05/11/21 13:20 History and Physical has been reviewed, including an updated exam of the patient. There are NO changes in the patient's condition. Risks, benefits, and alternatives have been discussed and questions answered. Patient agrees to proceed with procedure.
[2021-05-11] MEDS: ceFAZolin 2 GM/D5W 50 ML 2 GM/50 ML BAG IVPB (13:30)
--- NOTE | 2021-05-11 13:53 | PM.IMPN ---
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 She is s/p G tube placement by Dr Ryan this morning, to start tube feedings this evening. Discussed with project landscape architect who will give recommendations. (2) Dehydration: Code(s): E86.0 - Dehydration Status: Acute Assessment and Plan: Will stop IV fluids once tube feeds start. (3) Esophageal cancer: Code(s): C15.9 - Malignant neoplasm of esophagus, unspecified Status: Acute Assessment and Plan: Patient of Dr Sow. Continue oncology recommendations. Has not started treatment yet. Had CT-guided bone biopsy of a lytic lesion to right ilium this afternoon. Due to have PET scan this week. (4) Gastroesophageal reflux disease: Code(s): K21.9 - Gastro-esophageal reflux disease without esophagitis Status: Chronic Assessment and Plan: Continue PPI. (5) Essential (primary) hypertension: Onset Date: ~1994 Code(s): I10 - Essential (primary) hypertension Status: Chronic Assessment and Plan: BPs reviewed; variable but reasonable last . Resume home medications by G tube in AM (lisinopril, metoprolol). Subjective Date/time seen: 05/11/21 1130 Interval history: Ms. Sprague is a 80yo F recently diagnosed with metastatic adenocarcinoma of the esophagus who presented with increasing difficulty swallowing. She describes being on mostly a liquid diet over the last 1 month but over the last several days she is vomiting with any liquid intake. She is seen late this morning after returning from GI lab for her PEG placement. I am under the impression she is heading to CT next for bone biopsy of a lytic lesion per Dr Sow, the possibly even undergoing Port-A-Cath placement today as well. She reports feeling okay aside from a posterior headache and some abdominal discomfort at her new PEG site. She denies chest pain or shortness of breath. Some mild nausea without vomiting. Review of Systems Review of Systems: All systems reviewed & are unremarkable except as noted in HPI and below Exam Narrative: General: Female resting comfortably supine in bed in no acute distress. HEENT: Normocephalic, EOMI, oral mucosa moist. Cardiovascular: Rate and rhythm are regular. Respiratory: Lungs clear to auscultation bilaterally. Respirations even and non-labored. Tolerating room air. Abdomen: Soft, non-tender, non-distended, bowel sounds present. New G tube is present left upper abdomen with a clean/dry dressing intact. Extremities: Peripheral pulses intact. No edema or pain to palpation. Neuro: Awake and alert; answering questions appropriately. No focal neurological deficits. Speech is clear. Objective Data Vital Signs Vital Signs: Last Vital Signs Temp 99.8 F H 05/11/21 13:13 Pulse 82 05/11/21 13:13 Resp 20 05/11/21 13:13 BP 147/54 H 05/11/21 13:13 Pulse Ox 100 05/11/21 13:13 Intake/Output Intake/Output: Intake & Output 05/08/21 05/09/21 05/10/21 05/11/21 23:59 23:59 23:59 23:59 Intake Total 1200 1100 Output Total 450 500 Balance 750 600 Meds/Results Medications: Active Medications Generic Name Dose Route Start Last Admin Trade Name Freq PRN Reason Stop Dose Admin Albuterol 1 puff 05/09/21 23:55 Albuterol Sulfate (*Sp) Aerosol 1 Puff INHALATION Q4H PRN Shortness Of Breath Dextrose 12.5 gm 05/11/21 08:25 05/11/21 08:37 Dextrose 50% 25 Gm/50 Ml Syringe IV PUSH 12.5 gm PRN PRN Administration Hypoglyce
[2021-05-11] MEDS: HEPARIN SODIUM, PORCINE 10,000 UNITS/10 ML VIAL 10000 UNITS XX (14:00)
[2021-05-11] MEDS: LIDO 1%/EPINEPHRINE 1:100,000 20 ML VIAL 50 ML INFILTRATE (14:02)
--- NOTE | 2021-05-11 14:22 | W.PM.PROC2 ---
Procedure Note - Detailed Date of Procedure 05/11/21 Pre-op Diagnosis Esophageal Cancer,Nausea & Vomiting,Dehydration Post-op Diagnosis same Procedure Performed Right Internal Jugular tunneled Port-a-Cath placement using ultrasound and fluoroscopic guidance Surgeon Nam Wilder, DO Anesthesia MAC and local (0.5% bupivicaine with epinephrine) Indications This is a 80-year-old woman who presented with progressive dysphagia and was found to have evidence of esophageal carcinoma. She just recently had a PEG tube placed and she has seen Oncology. Port-A-Cath placement was recommended to initiate chemotherapy soon. Discussions were made with the patient about procedure options and decision was made to proceed with Port-A-Cath placement. Findings Ultrasound and fluoroscopy was used to identify the right internal jugular vein and place the port. Ultrasound initially was used to identify the right internal jugular vein as a compressible vessel just lateral to the carotid artery. An 18 gauge introducer needle was advanced under ultrasound guidance. Once within the lumen of the vessel, dark nonpulsatile blood was aspirated. Fluoroscopy was then used to guide advancement of the guidewire followed by dilator and sheath. The final fluoroscopic images demonstrated the catheter tip in the distal SVC and no kinks along its path. Description of Procedure Procedure as well as risks, benefits, and alternatives were discussed with patient. Written consent was obtained and placed in chart prior to procedure. Patient was brought back to surgical suite. Was placed supine on operating table. Time-out was done confirm patient procedure. IV sedation was then administered by the Anesthesia Department. The chest and neck area was prepped and draped in sterile fashion using chlorhexidine prep. Patient was placed in Trendelenburg position. SonoSite ultrasound was used to identify the right internal jugular vein. It was visualized as a compressible vessel just lateral to the carotid artery. 1% lidocaine with epinephrine was infiltrated directly over the vessel under ultrasound guidance. An 18 gauge introducer needle was then advanced under ultrasound guidance directly into the right internal jugular vein. Dark nonpulsatile blood was aspirated. A 0.035 in guidewire was then advanced through the needle under fluoroscopic guidance. The guidewire was visualized advancing all the way down into the superior vena cava. 1% lidocaine with epinephrine was then infiltrated on the right anterior chest and along the tract up to the guidewire insertion site. A 3 cm incision was made with a 15 blade scalpel, and electrocautery was then used for dissection down through the subcutaneous tissue to the pectoral fascia. A pocket was created just inferior to the incision using blunt dissection. A small lara incision was then also made at the insertion site at the neck. The tunneler was then advanced from the chest incision up to the neck incision and the catheter tubing was brought up through this tract. The dilator and sheath were then advanced over the guidewire under fluoroscopic visualization. The dilator and guidewire were then removed leaving the sheath in place. The catheter tubing was then advanced through the sheath under fluoroscopic guidance. The sheath was unsnapped and carefully peeled away. The catheter tubing was released underneath the neck incision. Fluoroscopy was used to confirm proper placement of the catheter tubing and no kinks along its path. The catheter was then cut to proper length and secured to the port. The port was then accessed with a Cabrales needle and aspirated and flushed with heparinized saline. The port function with ease. The port was then hep-locked with Hep-Lock solution. The port was then placed within the pocket that was created, and was secured to the fascia using 3 0 Prolene simple interrupted sutures. The patient was flattened out in bed. Angélica's
--- NOTE | 2021-05-11 15:30 | PC.NURSE ---
Returned from OR per bed. Report received from RN.
[2021-05-11 17:32] LABS: Glucose Point of Care 107 mg/dl (65-105)
[2021-05-12 00:15] LABS: Glucose Point of Care 133 mg/dl (65-105)
[2021-05-12 04:00] VITALS: BP 147/60; PULSE 78; RESP 18; TEMP 36.6; O2SAT 96
[2021-05-12] MEDS: LACTATED RINGERS 1,000 ML 75 ML IV CONT (05:17)
[2021-05-12 05:38] LABS: Glucose Point of Care 127 mg/dl (65-105)
[2021-05-12 06:34] LABS: Basophils Percent Auto 0.3 % (0.2-1.2); Eosinophils Absolute Auto 0.1 K/mm3 (0-0.3); Eosinophils Percent Auto 1.1 % (0-4.4); Hematocrit 34.3 % (37.0-47.0); Hemoglobin 11.6 g/dL (12.0-15.0); Immature Granulocyte Absolute 0.02 K/mm3 (0.00-0.031); Immature Granulocyte Percent A 0.3 % (0-0.5); Lymphocytes Absolute Auto 1.19 K/mm3 (0.9-3.2); Lymphocytes Percent Auto 16.7 % (18.3-44.2); Mean Corpuscular HGB Conc 33.8 g/dl (32-36); Mean Corpuscular Hemoglobin 29.6 pg (26-34); Mean Corpuscular Volume 87.5 fl (80-100); Mean Platelet Volume 8.7 fl (7.4-10.4); Monocytes Absolute Auto 0.7 K/mm3 (0.1-0.6); Monocytes Percent Auto 9.8 % (2.6-8.5); Neutrophils Absolute Auto 5.1 K/mm3 (1.3-6.7); Neutrophils Percent Auto 71.8 % (45.5-73.1); Platelet Count Result 219 k/mm3 (150-375); Red Blood Count 3.92 M/mm3 (4.2-5.4); Red Cell Distribution Width 12.1 % (11.5-14.5); White Blood Count 7.1 K/mm3 (4.5-10.0)
[2021-05-12 06:49] LABS: Alanine Aminotransferase 8 U/L (4-35); Alkaline Phosphatase 69 U/L (38-126); Anion Gap 8 mmol/L (8-16); Aspartate Amino Transferase 19 U/L (14-36); Bilirubin,Total 0.5 mg/dL (0.2-1.3); Blood Urea Nitrogen 6 mg/dL (7-17); Calcium 9.1 mg/dL (8.4-10.2); Carbon Dioxide 26 mmol/L (22-30); Chloride 99 mmol/L (98-107); Estimated CRCL calculation 67 ml/min; Estimated Glomerular Filt Rate > 60; Glucose 111 mg/dL (65-110); Magnesium 1.4 mg/dL (1.6-2.3); Potassium 3.3 mmol/L (3.4-5.0); Sodium 133 mmol/L (137-145)
[2021-05-12 08:00] VITALS: BP 130/54; PULSE 74; RESP 16; TEMP 36.8; O2SAT 95
[2021-05-12] MEDS: PANTOPRAZOLE SODIUM IV 40 MG VIAL IV PUSH ×2 (08:19→16:22)
[2021-05-12 08:21] VITALS: RESP 18; O2SAT 97
--- NOTE | 2021-05-12 09:56 | WPDANESPN ---
Anes - Prog Note Post-Op Date/Time: 05/12/21 09:56 Cardiovascular status: normal Respiratory status: normal Airway patency: baseline Mental status: baseline Post-Op hydration status: normal Vital Signs: Last Vital Signs Temp 36.8 C 05/12/21 08:00 Pulse 74 05/12/21 08:00 Resp 18 05/12/21 08:21 BP 130/54 L 05/12/21 08:00 Pulse Ox 97 05/12/21 08:21 Pain Score (VAS): 0/10 I/O: Intake & Output 05/11/21 05/12/21 05/12/21 23:59 07:59 15:59 Intake Total 0 1000 Output Total 800 650 Balance -800 350 Laboratory Tests 05/12/21 05:37 05/12/21 05:37 05/11/21 05/12/21 05/12/21 17:29 00:11 05:36 WBC RBC Hgb Hct MCV MCH MCHC RDW Plt Count MPV Immature Gran % (Auto) Neut % (Auto) Lymph % (Auto) Sebastian % (Auto) Eos % (Auto) Baso % (Auto) Lymph # (Auto) Sebastian # (Auto) Eos # (Auto) Baso # (Auto) Abs Immat Gran (auto) Absolute Neuts (auto) Absolute Nucleated RBC Nucleated RBC % Sodium Potassium Chloride Carbon Dioxide Anion Gap BUN Creatinine Estim Creat Clear Calc Estimated GFR Glucose POC Capillary Glucose 107 H 133 H 127 H Calcium Magnesium Total Bilirubin AST ALT Alkaline Phosphatase Total Protein Albumin 05/12/21 05/12/21 05:37 05:37 WBC 7.1 RBC 3.92 L Hgb 11.6 L Hct 34.3 L MCV 87.5 MCH 29.6 MCHC 33.8 RDW 12.1 Plt Count 219 MPV 8.7 Immature Gran % (Auto) 0.3 Neut % (Auto) 71.8 Lymph % (Auto) 16.7 L Sebastian % (Auto) 9.8 H Eos % (Auto) 1.1 Baso % (Auto) 0.3 Lymph # (Auto) 1.19 Sebastian # (Auto) 0.7 H Eos # (Auto) 0.1 Baso # (Auto) 0.0 Abs Immat Gran (auto) 0.02 Absolute Neuts (auto) 5.1 Absolute Nucleated RBC 0.0 Nucleated RBC % 0.0 Sodium 133 L Potassium 3.3 L Chloride 99 Carbon Dioxide 26 Anion Gap 8 BUN 6 L Creatinine 0.50 L Estim Creat Clear Calc 67 Estimated GFR > 60 Glucose 111 H POC Capillary Glucose Calcium 9.1 Magnesium 1.4 L Total Bilirubin 0.5 AST 19 ALT 8 Alkaline Phosphatase 69 Total Protein 6.0 L Albumin 3.0 L Post-procedural complaints: none Patient Feedback: Patient satisfied with anesthetic care.
[2021-05-12] MEDS: MAGNESIUM SULF 2 GM/WATER 50ML 2 GM/50 ML BAG IVPB (11:38)
[2021-05-12] MEDS: FLUTICASONE PROPIONATE 0.05% NA SPR 16 GM BTL (*BKC) 2 SPRAY NASAL (11:41)
[2021-05-12] MEDS: lisinopriL 10 MG TABLET FEED TUBE (11:42)
[2021-05-12] MEDS: SIMVASTATIN 20 MG TABLET PO (11:42)
[2021-05-12] MEDS: POTASSIUM CHLORIDE 20 MEQ PACKET (FOR LIQUID) 40 MEQ FEED TUBE (11:43)
[2021-05-12 12:00] VITALS: BP 137/64; PULSE 64; RESP 16; TEMP 36.8; O2SAT 97
--- NOTE | 2021-05-12 12:16 | PCNFU ---
Nutrition Follow-Up Complete: unintended weight loss as related to Nausea/vomiting as evidenced by weight loss of 24 ibs in the past 3 months. Goal:Meet estimated nutritional needs Patient is progressing towards goal. We will continue current diet orders. Pt current nutrition is Jevity 1.2 at 45 ml/hr. Nutrition recommendation: Jevity 1.2 bolus feeding 300 ml 4 x daily with 100 ml water flush. Last recorded weight is 68.3 kg, up from 66.5 kg. Bowel Motility:Last BM reported 05/09 Labs Reviewed: Glu 111,Cr 0.5,BUN 6,Alb 3.0,Na 133,Hct 34.3,Hgb 11.6 Meds Noted:Protonix, Zocar,Prinivil Additional Notes: Call from [employer] today regarding bolus feedings for home. PEG placed yesterday. Tolerating current tube feedings of Jevity 1.2. Called AARON Lala regarding recommendations for bolus feedings. Will monitor every Monday and Monday.
[2021-05-12 12:32] LABS: Glucose Point of Care 120 mg/dl (65-105)
[2021-05-12] MEDS: ACETAMINOPHEN ELIXIR 325 MG/10.15 ML UDC 650 MG XX (14:13)
--- NOTE | 2021-05-12 15:18 | WPDGIPROGNO ---
Progress Note: A&P Assessment and Plan (1) Dysphagia: Code(s): R13.10 - Dysphagia, unspecified Status: Acute Assessment and Plan: G-tube placed yesterday and she is tolerating tube feeding she will go home either tonight or tomorrow with home health and nutrition support (2) Primary esophageal adenocarcinoma: Code(s): C15.9 - Malignant neoplasm of esophagus, unspecified Status: Acute Assessment and Plan: she will complete PET scan for definitive staging and then will start appropriate treatment per hem-onc (3) Nausea & vomiting: Code(s): R11.2 - Nausea with vomiting, unspecified Status: Acute (4) Weight loss: Code(s): R63.4 - Abnormal weight loss Status: Acute Subjective Date/time seen: 05/12/21 15:18 Interval history: she tolerated tube feeding by G-tube, minimal discomfort in site but better with tylenol. Review of Systems Review of Systems: All systems reviewed & are unremarkable except as noted in HPI and below Exam Const: General: comfortable and no acute distress HENMT: General nose exam: Normal nares present Eyes: Sclera: sclerae normal Neck: Neck: supple Resp: Auscultation: clear to auscultation bilaterally Cardio: Rate: regular rate GI: GI Palp: Yes Soft to palpation, No Tenderness to palpation present (GI) and No Guarding due to palpation present (GI) Auscultation: normal bowel sounds Other: G-tube site looks ok Skin: General skin exam: normal color Neuro: Speech: normal speech Motor exam (neuro): Normal motor muscle tone present throughout Extrem: General: normal to inspection Psych: Mental Status: mental status grossly normal Objective Data Vital Signs Vital Signs: Vital Signs - 24 hr 05/11/21 15:20 05/11/21 15:35 05/11/21 16:00 Temperature 97.9 F 97.8 F 97.9 F Pulse Rate 83 84 85 Respiratory Rate 16 16 16 Blood Pressure 131/54 L 137/50 L 141/70 H Pulse Oximetry 98 98 100 05/11/21 17:05 05/11/21 20:00 05/11/21 23:57 Temperature 98.6 F 99.0 F 98.5 F Pulse Rate 75 80 93 Respiratory Rate 16 18 18 Blood Pressure 137/53 L 147/64 H 144/54 H Pulse Oximetry 100 100 95 05/12/21 04:00 05/12/21 08:00 05/12/21 08:21 Temperature 97.8 F 98.3 F Pulse Rate 78 74 Respiratory Rate 18 16 18 Blood Pressure 147/60 H 130/54 L Pulse Oximetry 96 95 97 05/12/21 12:00 Temperature 98.3 F Pulse Rate 64 Respiratory Rate 16 Blood Pressure 137/64 Pulse Oximetry 97 Intake/Output Intake/Output: Intake & Output 05/09/21 05/10/21 05/11/21 05/12/21 23:59 23:59 23:59 23:59 Intake Total 1200 2350 1050 Output Total 450 1800 1050 Balance 750 550 0 Meds/Results Medications: Active Medications Generic Name Dose Route Start Last Admin Trade Name Freq PRN Reason Stop Dose Admin Acetaminophen 650 mg 05/12/21 13:50 05/12/21 14:13 Acetaminophen Elixir 325 Mg/10.15 Ml Udc XX 650 mg Q6H PRN Administration Mild Pain (1-3) or Fever Albuterol 1 puff 05/09/21 23:55 Albuterol Sulfate (*Sp) Aerosol 1 Puff INHALATION Q4H PRN Shortness Of Breath Dextrose 12.5 gm 05/11/21 08:25 05/11/21 08:37 Dextrose 50% 25 Gm/50 Ml Syringe IV PUSH 12.5 gm PRN PRN Administration Hypoglycemia Protocol Fluticasone Propionate 2 spray 05/12/21 09:00 05/12/21 11:41 Fluticasone Propionate 0.05% Na Spr 16 Gm Btl (*Bkc) NASAL 2 spray DAILY VIRGIE Administration Glucagon 1 mg 05/11/21 08:25 Glucagon For Inj 1 Mg Vial IM PRN PRN Hypoglycemia Protocol Glucose 15 gm 05/11/21 08:25 Glucose Oral Gel 15 Gm Of Glucse In 37.5 Gm Tube PO PRN PRN Hypoglycemia Protocol Dextrose 1,000 mls @ 100 mls/hr 05/11/21 08:25 Dextrose 5% 1,000 Ml IVPB PRN PRN Hypoglycemia Protocol Lisinopril 10 mg 05/12/21 09:25 05/12/21 11:42 Lisinopril 10 Mg Tablet FEED TUBE 10 mg DAILY VIRGIE Administration Metoprolol Tartrate 25 mg 05/12/21
--- NOTE | 2021-05-12 15:22 | PM.DS ---
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 -G tube placement by Dr Ryan without issue -patient was started on continuous tube feedings per dietitian and she tolerated this well. This was transitioned to bolus feedings -patient educated on how to administer bolus feedings at home and it is suspected that she will need greater than 90 days of tube feedings (2) Dehydration: Code(s): E86.0 - Dehydration Status: Acute Assessment and Plan: Resolved (3) Esophageal cancer: Code(s): C15.9 - Malignant neoplasm of esophagus, unspecified Status: Acute Assessment and Plan: Patient of Dr Sow. Continue oncology recommendations. Has not started treatment yet. -Had CT-guided bone biopsy of a lytic lesion to right ilium this afternoon. - Due to have PET scan this week. -port placed while here (4) Gastroesophageal reflux disease: Code(s): K21.9 - Gastro-esophageal reflux disease without esophagitis Status: Chronic Assessment and Plan: Continue PPI, switch to liquid form to fit through G-tube (5) Essential (primary) hypertension: Onset Date: ~1994 Code(s): I10 - Essential (primary) hypertension Status: Chronic Assessment and Plan: Last blood pressure 137/64, resume home lisinopril, metoprolol and chlorthalidone DS: Summary Hospital Course Hospital Course: Date of service May 12, 2021 Patient is a 80-year-old female who was recently diagnosed with esophageal cancer who presented emergency room for and adequate p.o. intake due to difficulty swallowing urine on a liquid diet. Vitals in the ER were temperature 36.7? C, pulse 69, respiratory rate 16, blood pressure 90/40, pulse ox 98 on room air. CBC within normal limits. BMP relatively normal. Patient was admitted to the hospitalist service and started on IV fluids and improved. She underwent NG tube and port placement. She also had a bone biopsy of a suspicious lesion while here and the pathology is pending. After surgery she was placed on continuous tube feedings and did well with this. Since she was going home, she was transitioned on bolus feedings. The day of discharge she was tolerating her bolus feeds and was educated how to do so at home. Patient was very eager for discharge since the following day she had a PET scan at 6:30 a.m. and requested discharge. She was educated on how to perform the bolus feedings and the worrisome signs and symptoms to come back to the emergency room for. She was discharged in stable condition and is suspected that she will need greater than 90 days of tube feedings. Status at Discharge Functional status at discharge: independent ambulation Overall status at discharge: patient is progressing back to baseline Time Spent with Patient Time attestation: Total time spent providing and/or coordinating discharge services:40 min Time spent: Greater than 30 minutes Exam Narrative: General: Female resting comfortably supine in bed in no acute distress. HEENT: Normocephalic, EOMI, oral mucosa moist. Cardiovascular: Regular rate and rhythm Respiratory: Lungs clear to auscultation bilaterally. Respirations even and non-labored. Tolerating room air. Abdomen: Soft, non-tender, non-distended, bowel sounds present. G tube is present left upper abdomen with a clean/dry dressing intact. Extremities: Peripheral pulses intact. No edema or pain to palpation. Neuro: Alert and oriented x4. Answering questions appropriately. No focal neurological deficits. Speech is clear. DS: Data Data Completed and Pending Labs on day of discha
--- NOTE | 2021-05-13 13:18 | PC.NURSE ---
Bone biopsy- metastatic adenocarcinoma consistent with esophageal primary. ANUSHKA Salguero aware. Faxed to Dr. Baum.
== END 2021-05-12 18:55 | disposition home health service (06) ==
LOC: ANHED 18:41 → ANH3MEDSUR 05-10 01:23
PROVIDERS: Emergency Medicine; Family Medicine; Internal Medicine Gastroenterology; Physician Assistant; Surgery; Admitting Provider Student in an Organized Health Care Education/Training Program; Emergency Provider Emergency Medicine; PCP Family Medicine; Visit Provider Internal Medicine
PROC: (CPT 36561; principal; 2021-05-11 13:30)
PROC: 0DJ08ZZ Inspection of Upper Intestinal Tract, Via Natural or Artificial Opening Endoscopic (ICD-10-PCS; CPT 43235; principal; 2021-05-11 14:30)
PROC: 0DH63UZ Insertion of Feeding Device into Stomach, Percutaneous Approach (ICD-10-PCS; CPT 43246; 2021-05-11 14:30)
DX: R13.10 Dysphagia, unspecified (principal); E86.0 Dehydration; C15.5 Malignant neoplasm of lower third of esophagus; C79.51 Secondary malignant neoplasm of bone; R11.2 Nausea with vomiting, unspecified; K44.9 Diaphragmatic hernia without obstruction or gangrene; M25.551 Pain in right hip; K21.9 Gastro-esophageal reflux disease without esophagitis; R63.4 Abnormal weight loss; I10 Essential (primary) hypertension; E78.5 Hyperlipidemia, unspecified; E55.9 Vitamin D deficiency, unspecified; J45.909 Unspecified asthma, uncomplicated; M85.89 Other specified disorders of bone density and structure, multiple sites; Z86.73 Personal history of transient ischemic attack (TIA), and cerebral infarction without residual deficits; Z87.891 Personal history of nicotine dependence; Z79.51 Long term (current) use of inhaled steroids; Z79.82 Long term (current) use of aspirin
CPT/HCPCS: 36561; 20225; 36415; 43246; 76937; 77001; 77012; 80048; 80053; 81001; 82948; 83690; 83735; 85025; 85027; 85610; 85730; 88307; 88311; 88342; 99285; A9270; C1788; C9113; G0378; J0131; J0690; J1100; J2405; J2704; J3475; J7120

== ENCOUNTER 2021-05-13 09:09 | Outpatient (CLI) | payer MEDICARE, SELFPAY ==
--- NOTE | ~2021-05-13 | PE_ITS ---
EXAMINATION: PET skull to mid thigh DATE: 05/13/2021 11:11 INDICATION: Cancer of distal third of esophagus. TECHNIQUE: Blood glucose level was 111 mg/dL. 9.004 mCi of 18-fluorodeoxyglucose (18-FDG) was adminis tered i.v. Low dose computed tomography (CT) images were acquired from the base of the brain to the p roximal thighs for attenuation correction and anatomic localization. Automated exposure control was e mployed. Dose-length product (DLP) was 606 mGy-cm. Positron emission tomography (PET) images were acq uired in the same distribution. COMPARISON: CT abdomen and pelvis 04/09/2021 FINDINGS: Head/neck: There is mucosal thickening in the paranasal sinuses. There is increased activity in left maxillary sinus, consistent with inflammation. There is increased activity in the oropharynx and glot tis without CT correlate, likely physiologic. There are no pathologically enlarged lymph nodes. There is a right internal jugular port with tip in right atrium. Chest: There is minimal scarring at the lung apices. No pleural effusion. The heart size is normal. T here are coronary artery calcifications. No pericardial effusion. There is wall thickening of the dis mike esophagus with maximum SUV of 11.4. Abdomen/pelvis/proximal thighs: The liver, gallbladder, spleen, pancreas, and right adrenal gland are normal. There is a 2.8 cm mass left adrenal gland measuring soft tissue attenuation without increase d activity, likely an adenoma. The kidneys are normal. There is a gastrostomy tube in expected positi on. There are enlarged gastrohepatic, periceliac, and aortocaval lymph nodes with increased activity. There are no dilated loops of bowel. There is no free intraperitoneal fluid. There is a 1.9 cm lytic lesion in right ilium with maximum SUV of 16.2, consistent with biopsy-proved metastatic disease. IMPRESSION: 1. Wall thickening of the distal esophagus with increased activity, consistent with primary malignanc y. 2. Abdominal lymphadenopathy and lytic lesion in right ilium without increased activity, consistent w ith metastatic disease. Reviewed, dictated and finalized at location A. IMPRESSION: 1. Wall thickening of the distal esophagus with increased activity, consistent with primary malignancy. 2. Abdominal lymphadenopathy and lytic lesion in right ilium without increased activity, consistent with metastatic disease.
[2021-05-13 09:47] LABS: Glucose Point of Care 111 mg/dl (65-105)
== END 2021-05-13 09:10 | disposition home or self-care (01) ==
LOC: ANHIMG 09:15
PROVIDERS: PCP Family Medicine; Visit Provider Internal Medicine Hematology & Oncology
DX: C15.5 Malignant neoplasm of lower third of esophagus (principal); R59.0 Localized enlarged lymph nodes
CPT/HCPCS: 78815; A9552

== ENCOUNTER 2021-05-14 09:44 | Outpatient (CLI) | payer MEDICARE, SELFPAY ==
--- NOTE | ~2021-05-14 | NM_ITS ---
EXAMINATION: NM bone scan whole body DATE: 05/14/2021 13:09 INDICATION: Cancer of the distal third of the esophagus TECHNIQUE: 24.8 mCi Tc-99m HDP was administered intravenously. Delayed whole-body scintigrams were o btained. COMPARISON: PET/CT dated 05/13/2021 FINDINGS: There is subtle asymmetric mild increased uptake surrounding a central photopenic defect in the right supra-acetabular region corresponding to the biopsy-proven lytic metastatic lesion seen on prior CT and PET/CT. No other suspicious bone lesions identified. There photopenic defects consistent with niesha ateral total knee arthroplasties. Mild likely degenerative joint centered uptake at the bilateral elb ows, the left wrist and base of the thumb, bilateral sternoclavicular joints, at the bilateral feet a nd ankles and at the cervical facet joints. Mild thoracic dextroscoliosis. IMPRESSION: 1. Mild uptake associated with the biopsy-proven metastatic lesion in the right supra-acetabular osmar on. No other lesions suspicious for metastatic disease identified although sensitivity for lytic lesi ons, particularly smaller lytic lesions is lower for lytic metastases. Reviewed, dictated and finalized at location A. IMPRESSION: 1. Mild uptake associated with the biopsy-proven metastatic lesion in the right supra-acetabular region. No other lesions suspicious for metastatic disease id entified although sensitivity for lytic lesions, particularly smaller lytic les ions is lower for lytic metastases.
== END 2021-05-14 09:45 | disposition home or self-care (01) ==
PROVIDERS: PCP Family Medicine; Visit Provider Internal Medicine Hematology & Oncology
DX: C15.5 Malignant neoplasm of lower third of esophagus (principal)
CPT/HCPCS: 78306; A9561

== ENCOUNTER 2021-05-14 13:11 | Outpatient (CLI) | payer MEDICARE, SELFPAY ==
--- NOTE | ~2021-05-14 | MMUS_ITS ---
EXAMINATION: MM diagnostic victoria RT w ciara, US breast RT limited HISTORY: Follow-up right breast asymmetry TECHNIQUE: Additional 3-D tomosynthesis images of the right breast were performed and synthetic 2-D i mages were generated. CAD analysis was submitted and interpreted. High resolution Limited right breas t ultrasound was performed. COMPARISON: Comparison to multiple prior studies sequentially, with oldest reviewed study dated 06/14. BREAST PARENCHYMAL COMPOSITION: Breast composed of scattered areas of fibroglandular density. FINDINGS: MAMMOGRAPHIC FINDINGS: There are no suspicious masses, calcifications or architectural distortion in the right breast to sug gest malignancy. ULTRASOUND: Limited right breast ultrasound: At 3:00, 6 cm from the nipple, there is a hyperechoic oval shaped ma ss measuring 8 mm, consistent with lipoma. No suspicious masses are identified in the left breast to suggest malignancy. IMPRESSION: 1. No evidence for malignancy in the right breast. 2. Routine yearly screening mammogram and regular clinical breast examination are recommended. BI-RADS Category 2: Benign finding(s). Reviewed, dictated and finalized at location A. IMPRESSION: 1. No evidence for malignancy in the right breast. 2. Routine yearly screening mammogram and regular clinical breast examination a re recommended. BI-RADS Category 2: Benign finding(s).
== END 2021-05-14 13:12 | disposition home or self-care (01) ==
PROVIDERS: PCP Family Medicine; Visit Provider Family Medicine
DX: R92.8 Other abnormal and inconclusive findings on diagnostic imaging of breast (principal); C15.5 Malignant neoplasm of lower third of esophagus
CPT/HCPCS: 76642; 77061; 77065; 78306; A9561; G0279

== ENCOUNTER 2021-07-26 10:15 | Emergency (ER) | payer MEDICARE, SELFPAY ==
--- NOTE | 2021-07-26 10:16 | ED.SKABFB ---
HPI - Skin/Abscess/Foreign Bdy General Chief complaint: Skin/Abscess/Foreign Body Stated complaint: rash Time Seen by Provider: 07/26/21 10:17 Source: patient and RN notes reviewed History of Present Illness HPI narrative: Patient is a 80-year-old female who presents the urgent care with complaints of possible shingles to the left neck and chest. Patient states that she has had shingles in the past and does get her shingles vaccine. Patient denies of any use of [id number] medications and she noticed the rash on Monday. No other acute complaints. No acute distress noted. Patient aware of the plan of care. Some parts of this dictation were generated by voice recognition software and may contain typographical and/or grammatical inaccuracies. Related Data Home Medications Medication Instructions Recorded Confirmed albuterol sulfate 90 mcg/actuation 1 puff INHALATION Q4H PRN 09/08/20 07/26/21 aerosol inhaler fentanyl 1 patch TRANSDERMAL Q72H 05/27/21 07/26/21 loperamide [Imodium] 2 mg PO QID PRN 07/06/21 07/26/21 ondansetron 8 mg PO Q8H PRN 07/06/21 07/26/21 simethicone 40 mg PO TID PRN 07/06/21 07/26/21 trazodone 50 mg PO DIRECTED 07/26/21 07/26/21 Allergies Allergy/AdvReac Type Severity Reaction Status Date / Time No Known Allergies Allergy Verified 07/26/21 10:18 Review of Systems Review of Systems: CONSTITUTIONAL: Denies fever, chills, or sweats. EYES: Denies visual changes, redness, or discharge. ENT: Denies rhinorrhea, congestion, sore throat, or otalgia. CARDIOVASCULAR: Denies chest pain, palpitations, or edema. RESPIRATORY: Denies cough or dyspnea. GASTROINTESTINAL: Denies abdominal pain, nausea, vomiting, or diarrhea. GENITOURINARY: Denies dysuria or hematuria. SKIN: Reports of blistered itchy/slightly painful rash to the left upper back/neck and left chest MUSCULOSKELETAL: Denies back pain, joint pain, or myalgia. NEUROLOGIC: Denies headache, numbness, or weakness. All other systems reviewed are negative, except as documented in HPI. [facility] Past Medical History Medical History Barretts esophagus Chronic neck and back pain Esophageal cancer (~04/13/21) Essential (primary) hypertension (~1994) Gastroesophageal reflux disease Hyperlipidemia, acquired Osteopenia of multiple sites (~03/20/20) Primary esophageal adenocarcinoma Shingles (herpes zoster) polyneuropathy (~1997) Transient ischemic attack on medication (~04/2016) Unspecified asthma, uncomplicated (~1983) Vitamin D deficiency Weight loss Surgical History Surgical History S/P cataract surgery (~2014) S/P complete hysterectomy (~1994) S/p total knee replacement, bilateral (~2011) S/P urological surgery (~2014) Transobturator taping with cystoscopy. Family History Family History Father Family history of diabetes mellitus in first degree relative Hypertension Mother Family history of diabetes mellitus in first degree relative Hypertension Sibling Family history of osteoarthritis Family history of diabetes mellitus in first degree relative Esophageal adenocarcinoma Lymph node cancer Social History Social History Social History: Surrogate decision maker: Nubia Leal, daughter. Code status: Full code. Smoking packs per day: 1 Smoking cigarettes per day: 20.0 Years smoked: 50 Smoking pack-years: 50.00 Smoking status: Former smoker Tobacco type: cigarettes Smoking end date: 10/02/11 Alcohol intake: current Drinks per week: 0 Alcohol use details: Sparingly. Substance use: never Substance use type: does not use Additional living arrangements comments: The patient has been for 5 years. She lives in her own home in [place]. Daughter lives nearby. Spiritual care concerns: No
[2021-07-26 10:23] VITALS: BP 124/88; PULSE 113; RESP 18; TEMP 36.5; O2SAT 100
== END 2021-07-26 10:27 | disposition home or self-care (01) ==
PROVIDERS: Emergency Provider Nurse Practitioner Family; PCP Family Medicine
DX: B02.9 Zoster without complications (principal); Z87.891 Personal history of nicotine dependence; K22.70 Barrett's esophagus without dysplasia; I10 Essential (primary) hypertension; K21.9 Gastro-esophageal reflux disease without esophagitis; E78.5 Hyperlipidemia, unspecified; M81.0 Age-related osteoporosis without current pathological fracture; Z86.73 Personal history of transient ischemic attack (TIA), and cerebral infarction without residual deficits; J45.909 Unspecified asthma, uncomplicated; E55.9 Vitamin D deficiency, unspecified; Z96.653 Presence of artificial knee joint, bilateral
CPT/HCPCS: 99213; G0463

== ENCOUNTER 2021-09-14 10:40 | Outpatient (CLI) | payer MEDICARE, SELFPAY ==
--- NOTE | ~2021-09-14 | NM_ITS ---
EXAMINATION: NM bone scan whole body DATE: 09/14/2021 13:55 INDICATION: Cancer of the distal third of the esophagus TECHNIQUE: 24.2 mCi Tc-99m HDP was administered intravenously. Delayed whole-body scintigrams were o btained. COMPARISON: Bone scan dated 05/14/2021, PET/CT dated 05/13/[address] dated 09/14/2021 FINDINGS: Persistent increased uptake surrounding a central photopenic defect in the right supra-acetabular reg ion corresponding to FDG avid lytic lesion on the prior PET/CT consistent with metastatic disease. Th ere is a nonspecific new small focus of increased uptake in the right calvarium near the vertex which is suspicious for additional metastatic disease. No prior imaging of this region for comparison. Add itional mild interval increase in uptake at the lesser trochanter of the proximal right femur and at the anterior left seventh rib, the latter without radiologic correlate on prior CT. Photopenic defect s at the bilateral knees corresponding to total knee arthroplasties. Similar pattern of mild likely d egenerative joint centered uptake at the bilateral elbows, acromioclavicular joints, sternoclavicular joints, mid feet as well as at the radial aspect of the left wrist. Unchanged mild increased uptake in the cervical spine corresponding to severe facet osteoarthritis on the right at C2-C3 and on the l eft at C4-C5 and associated with severe degenerative disc disease at C5-C6. Mild thoracic dextroscoli osis. IMPRESSION: 1. Persistent increased uptake at the periphery of a photopenic defect in the right supra-acetabular region consistent with biopsy-proven metastatic adenocarcinoma. 2. New foci of mild increased uptake at the right lesser trochanter and at the right calvarium near t he vertex for which there is no other recent imaging for correlation and could not exclude new metast atic disease. No evident radiologic correlate for an additional new indeterminate small focus of mild uptake at the anterior left seventh rib. Could consider CT of the head and/or right hip for further evaluation as clinically indicated. Reviewed, dictated and finalized at location A. R TECH IMPRESSION: 1. Persistent increased uptake at the periphery of a photopenic defect in the r ight supra-acetabular region consistent with biopsy-proven metastatic adenocarc inoma. 2. New foci of mild increased uptake at the right lesser trochanter and at the right calvarium near the vertex for which there is no other recent imaging for correlation and could not exclude new metastatic disease. No evident radiologic correlate for an additional new indeterminate small focus of mild uptake at th e anterior left seventh rib. Could consider CT of the head and/or right hip for further evaluation as clinically indicated.
--- NOTE | ~2021-09-14 | CT_ITS ---
EXAMINATION: CT diagnostic chest w con EXAM DATE: 09/14/2021 11:13 INDICATION: Cancer distal esophagus. Upper abdominal lymphadenopathy. Pelvic osteolytic disease. TECHNIQUE: Spiral CT of the chest following intravenous injection of 75 mL Omnipaque 350. Axial, cor onal and sagittal images of the chest were reviewed. Coronal maximum intensity pixel images of chest reviewed. The dose-length product (DLP) for this examination was 144.64 mGy-cm. The exposure was t ailored according to patient size (auto mA exposure control), and iterative reconstruction (ASIR) was used as additional dose reduction technique. Comparison is made to prior examination from 04/09/2021. FINDINGS: There is right-sided Chemo-Port. Interval normalization in the thickness of the distal eso phageal wall. Interval normalization in size of left upper retroperitoneal metastatic lymphadenopathy . These are likely response to treatment. There are no pleural or pericardial effusions. No central pulmonary emboli. Mild emphysema. Tracheobr onchial tree is patent. There is no mediastinal, hilar or axillary lymphadenopathy. There is no p neumothorax. Heart normal in size. There is mild coronary arterial calcification, arterial sclero sis. 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 There is thoracic spondylosis with out osteoblastic or osteolytic lesions identified. IMPRESSION: 1. Normalization of esophageal wall thickening and upper abdominal lymph node size, likely response to treatment. 2. Mild emphysema. Reviewed, dictated and finalized at location B. ER DIRECTOR LEAD TEACHER
== END 2021-09-14 10:41 | disposition home or self-care (01) ==
LOC: ANHIMG 10:46
PROVIDERS: PCP Family Medicine; Visit Provider Internal Medicine Hematology & Oncology
DX: C15.5 Malignant neoplasm of lower third of esophagus (principal); J43.9 Emphysema, unspecified
CPT/HCPCS: 71260; 78306; A9561; Q9967

== ENCOUNTER 2021-09-23 20:55 | Inpatient (IN) | payer MEDICARE, SELFPAY ==
--- NOTE | ~2021-09-23 | CT_ITS ---
EXAMINATION: CT abdomen pelvis w con DATE: 09/23/2021 22:31 INDICATION: Abdominal pain, vomiting and nausea TECHNIQUE: Computed tomography (CT) of the abdomen and pelvis was performed with 100 mL Omnipaque-350 intravenous contrast. Automated exposure control and iterative reconstruction technique were employe d. The dose-length product was 447.86 mGy-cm. COMPARISON: CT dated 04/09/2021 and PET/CT dated 05/13/2021 FINDINGS: Atelectasis in the left lower lobe. Heart size is normal. Very small pericardial effusion. Small slid ing-type hiatal hernia. Significant interval decrease in now mild wall thickening of the distal esoph nidia with mild haziness to the surrounding fat. Interval decrease in size of a previously 1.4 x 1.1, currently 8 x 8 mm paraesophageal lymph node consistent with response to treatment of known distal es ophageal cancer and likely metastatic disease.. Liver, gallbladder, spleen, pancreas right kidney and right adrenal gland are normal. 2.5 cm left adrenal adenoma with characteristic low attenuation on p rior PET study. Subcentimeter left renal cyst. There is moderate colonic diverticulosis with a sigmoi d predominance. There is no adjacent inflammatory change to suggest diverticulitis. Normal appendix . There is fluid filling multiple mildly dilated loops of small bowel measuring up to 2.8 cm in maxim al diameter extending to a transition point in the anterior right pelvis relatively close to the and the inguinal canal with the bowel under goes 180 degree change in direction. Pseudo-feces sign consis tent with delayed transit in the immediately more proximal small bowel. Small amount of likely reacti ve ascites in the pelvis. More distal small bowel is decompressed extending to the ileocecal valve. N o pneumatosis, abscess or free intraperitoneal gas. Bladder is normal. The uterus is not identified a nd has likely been surgically resected. Again seen are couple mildly prominent retroperitoneal lymph nodes along the left side of the proximal abdominal aorta near the superior mesenteric and left renal arteries which measure up to 1 cm in short axis diameter suspicious for metastatic disease. No new o r enlarging abdominal or pelvic lymphadenopathy. Significant interval increase in size of a previousl y 1.9 cm, currently 3.7 cm lytic lesion in the supra-acetabular right ilium consistent with biopsy-pr oven metastatic disease. New approximately 1.4 cm lytic lesion transverse in the anterior cortex of t he left S1 sacral ala also suspicious for progression of metastatic disease. IMPRESSION: 1. Early/partial small bowel obstruction with multiple loops of mildly dilated small bowel measuring up to 2.8 cm which extend to a transition point in the anterior inferior right pelvis. 2. Increase in size of lytic bone lesions at the left sacrum and right ilium consistent with progress ion of biopsy-proven metastatic esophageal cancer. 3. Decrease in wall thickening the distal esophagus with an adjacent small paraesophageal lymph node consistent with likely response to treatment of primary esophageal cancer and metastatic disease. 4. Unchanged mild upper abdominal lymphadenopathy which is suspicious for additional stable metastati c disease. Reviewed, dictated and finalized at location . [employer] IMPRESSION: 1. Early/partial small bowel obstruction with multiple loops of mildly dilated small bowel measuring up to 2.8 cm which extend to a transition point in the an terior inferior right pelvis. 2. Increase in size of lytic bone lesions at the left sacrum and right ilium co nsistent with progression of biopsy-proven metastatic esophageal cancer. 3. Decrease in wall thickening the distal esophagus with an adjacent small para esophageal lymph node consistent with likely response to treatment of pr
[2021-09-23 21:00] VITALS: BP 156/104; PULSE 102; RESP 18; TEMP 36.6; O2SAT 100
--- NOTE | 2021-09-23 21:31 | ED.NAVMDI ---
HPI - Nausea/Vomiting/Diarrhea General Chief complaint: Nausea/Vomiting/Diarrhea Stated complaint: throwing up all day Time Seen by Provider: 09/23/21 21:08 Source: patient Mode of arrival: ambulatory Limitations: no limitations History of Present Illness HPI Narrative: Patient is a 81-year-old female complaining of nausea and vomiting, I cannot keep anything down started today. Patient also complained of diffuse abdominal discomfort. Patient states that she has a history of esophageal cancer, stage IV with mets, currently on chemotherapy. Patient denies any chest pain, shortness of breath, diarrhea, fever or chills. Related Data Home Medications Medication Instructions Recorded Confirmed albuterol sulfate 90 mcg/actuation 1 puff INHALATION Q4H PRN 09/08/20 09/22/21 aerosol inhaler cephalexin 500 mg capsule 500 mg PO TID cap 09/21/21 09/22/21 Allergies Allergy/AdvReac Type Severity Reaction Status Date / Time No Known Allergies Allergy Verified 09/21/21 15:35 Review of Systems Review of Systems: All systems reviewed & are unremarkable except as noted in HPI and below Constitutional: Constitutional: Denies body ache(s), Denies chills, Denies excessive sweating, Denies fatigue, Denies fever(s), Denies headache(s), Denies lethargy, Denies malaise, Denies weakness and Denies weight loss Eyes: Eyes: Denies blurry vision, Denies change in vision and Denies loss of vision ENT: Denies dizziness, Denies ear discharge, Denies headache(s), Denies lip swelling, Denies epistaxis, Denies nasal congestion, Denies neck pain, Denies throat swelling and Denies tongue swelling Cardiovascular: Cardiovascular: Denies chest pain, Denies chest pain at rest, Denies chest pain with activity, Denies diaphoresis, Denies rapid heart rate, Denies edema, Denies irregular heart rhythm, Denies lightheadedness, Denies palpitations, Denies dyspnea and Denies dyspnea on exertion Respiratory: Respiratory: Denies chest congestion, Denies cough, Denies hemoptysis, Denies dyspnea and Denies dyspnea on exertion Gastrointestinal: Gastrointestinal: Denies melena, Denies hematochezia, Denies diarrhea and Denies hematemesis Musculoskeletal: Musculoskeletal: Denies abnormal gait, Denies deformity, Denies joint swelling, Denies limited range of motion, Denies neck pain and Denies numbness Neurologic: Denies Abnormal speech present, Denies abnormal gait, Denies confusion, Denies dizziness, Denies headache(s), Denies focal weakness, Denies loss of vision, Denies numbness, Denies Other visual disturbances, Denies Sensory deficit (Neuro) and Denies weakness Psychiatric: Psychiatric: Denies confusion, Denies depression, Denies auditory hallucinations, Denies homicidal ideation and Denies suicidal ideation Endocrine: Endocrine: Denies cold intolerance, Denies excessive sweating, Denies fatigue, Denies heat intolerance and Denies palpitations Hematologic/Lymphatic: Hematologic/Lymphatic: Denies easy bleeding and Denies easy bruising Allergic/Immunologic: Allergic/Immunologic: Denies lip swelling, Denies throat swelling and Denies tongue swelling PMFSH Past Medical History Medical History Barretts esophagus Chronic neck and back pain Esophageal cancer (~04/13/21) Essential (primary) hypertension (~1994) Gastroesophageal reflux disease Hyperlipidemia, acquired Osteopenia of multiple sites (~03/20/20) Primary esophageal adenocarcinoma Shingles (herpes zoster) polyneuropathy (~1997) Transient ischemic attack on medication (~04/2016) Unspecified asthma, uncomplicated (~1983) Vitamin D deficiency Weight loss Surgical History Surgical History Encounter for feeding tube placement 05/2021 S/P cataract surgery (~2014) S/P complete hysterectomy (~1994) S/p total knee replacement, bilateral (~2011) S/P urological surgery (~2014) Transobturator taping with cy
[2021-09-23] MEDS: LACTATED RINGERS 1,000 ML 999 ML IV CONT (21:53)
[2021-09-23] MEDS: ONDANSETRON INJ 4 MG/2 ML VIAL IV PUSH (21:54)
[2021-09-23 21:55] LABS: Basophils Percent Auto 0.2 % (0.2-1.2); Hematocrit 44.2 % (37.0-47.0); Hemoglobin 15.1 g/dL (12.0-15.0); Immature Granulocyte Absolute 0.03 K/mm3 (0.00-0.031); Immature Granulocyte Percent A 0.6 % (0-0.5); Lymphocytes Percent Auto 11.7 % (18.3-44.2); Mean Corpuscular HGB Conc 34.2 g/dl (32-36); Mean Corpuscular Hemoglobin 31.5 pg (26-34); Mean Corpuscular Volume 92.1 fl (80-100); Mean Platelet Volume 8.4 fl (7.4-10.4); Monocytes Absolute Auto 0.3 K/mm3 (0.1-0.6); Monocytes Percent Auto 6.6 % (2.6-8.5); Neutrophils Absolute Auto 4.2 K/mm3 (1.3-6.7); Neutrophils Percent Auto 80.9 % (45.5-73.1); Platelet Count Result 178 k/mm3 (150-375); Red Cell Distribution Width 15.3 % (11.5-14.5); White Blood Count 5.1 K/mm3 (4.5-10.0)
[2021-09-23] MEDS: HYDROmorphone HCL INJ (*CRX) 1 MG/ML SYR 0.5 MG IV PUSH (21:55)
[2021-09-23 22:04] VITALS: O2SAT 78
[2021-09-23 22:05] LABS: Alanine Aminotransferase 22 U/L (4-35); Albumin Level 4.5 g/dL (3.5-5.1); Alkaline Phosphatase 99 U/L (38-126); Anion Gap 11 mmol/L (8-16); Aspartate Amino Transferase 36 U/L (14-36); Bilirubin,Total 1.2 mg/dL (0.2-1.3); Blood Urea Nitrogen 12 mg/dL (7-17); Calcium 9.9 mg/dL (8.4-10.2); Carbon Dioxide 23 mmol/L (22-30); Chloride 100 mmol/L (98-107); Estimated CRCL calculation 48 ml/min; Estimated Glomerular Filt Rate > 60; Glucose 188 mg/dL (65-110); Lipase 37 U/L (23-300); Potassium 4.6 mmol/L (3.4-5.0); Sodium 134 mmol/L (137-145)
[2021-09-23 23:43] LABS: Add Urine Microscopic? YES; Appearance Urine Clear (Clear); Bacteria Urine Trace /hpf; Bilirubin Urine Negative (Negative); Blood Urine Negative (Negative); Color Urine Straw (Yellow); Glucose Urine UA Negative (Negative); Ketones Urine 1+ mg/dL (Negative); Leukocyte Esterase Ur Negative LEU/UL (Negative); Mucus Urine Rare /lpf; Nitrate Urine Negative (Negative); Protein Urine Negative (Negative); RBC Urine 0-2 /hpf (0-2); Squamous Epithelial Cell Urine Occasional /hpf (Few); Urobilinogen Urine Negative mg/dL (<2.0); WBC Urine 0-3 /hpf
--- NOTE | 2021-09-23 23:43 | PM.IMHP ---
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 She was found to have a small-bowel obstruction on CT of abdomen and pelvis. Patient had been taking amoxicillin for infected PEG tube ostomy. She denies any hematemesis coffee-ground emesis blood red blood per rectum on according to the patient she had been able to have oral diet and had been doing fairly well up until today in the morning. Patient denies any chills, fevers ,rigors, cough, sputum production, shortness of breath ,she has had a weight loss of 30+ lb ever since March. CT of abdomen and pelvis without contrast was significant for early/partial small bowel obstruction with multiple loops of mildly dilated small bowel ,increase in size of lytic bone lesions at the left sacrum and right ilium consistent with progression of biopsy-proven metastatic esophageal cancer, decrease in wall thickening the distal esophagus with an adjacent small paraesophageal lymph node consistent with likely response to treatment of primary esophageal cancer and metastatic disease,unchanged mild upper abdominal lymphadenopathy which is suspicious for additional stable metastatic disease. Review of Systems Review of Systems: Nausea and vomiting Constitutional: Constitutional: Denies chills, Denies fever(s), Denies malaise, Denies weakness and Reports weight gain Eyes: Eyes: Denies change in vision ENT: Denies dysphagia, Denies nasal congestion, Denies nasal discharge, Denies nasal obstruction and Denies odynophagia Cardiovascular: Cardiovascular: Denies claudication, Denies radiating jaw, neck or arm pain, Denies palpitations, Denies dyspnea, Denies dyspnea on exertion and Denies orthopnea Respiratory: Respiratory: Denies cough and Denies dyspnea Gastrointestinal: Gastrointestinal: Denies abdominal pain, Denies dyspepsia, Denies heartburn, Reports nausea and Reports vomiting Genitourinary: Genitourinary: Denies dysuria Musculoskeletal: Musculoskeletal: Denies arthralgias and Denies joint swelling Integumentary/Breasts: Skin/Breast: Denies rash Neurologic: Denies focal weakness and Denies Sensory deficit (Neuro) Psychiatric: Psychiatric: Reports no additional psychiatric complaints and Reports as per HPI Endocrine: Endocrine: Denies excessive sweating, Denies heat intolerance, Denies polyphagia, Denies polydipsia, Denies polyuria and Denies palpitations Hematologic/Lymphatic: Hematologic/Lymphatic: Reports no additional hematologic/lymphatic complaints and Reports as per HPI Allergic/Immunologic: Allergic/Immunologic: Reports no additional allergic/immunologic complaints and Reports as per HPI PMFSH Past Medical History Medical History Barretts esophagus Chronic neck and back pain Esophageal cancer (~04/13/21) Essential (primary) hypertension (~1994) Gastroesophageal reflux disease Hyperlipidemia, acquired Osteopenia of multiple sites (~03/20/20) Primary esophageal adenocarcinoma Shingles (herpes zoster) polyneuropathy (~1997) Transient ischemic attack on medication (~04/2016) Unspecified asthma, uncomplicated (~1983) Vitamin D deficiency Weight loss Surgical History Surgical History Encounter for feeding tube placement 05/2021 S/P cataract surgery (~2014) S/P complete hysterectomy (~1994) S/p total knee replacement, bilateral (~2011) S/P urological surgery (~2014) Transobturator taping with cystoscopy. Family History Family History (Review
[2021-09-24] VITALS (7 sets, daily range): BP systolic 102–131; BP diastolic 52–81; PULSE 66–82; RESP 16–18; TEMP 36.6–37.1; O2SAT 95–99; BMI 26.4
[2021-09-24 00:12] LABS: Specific Grav Ur 1.015 (1.001-1.035)
--- NOTE | 2021-09-24 01:37 | PC.NURSE ---
pt states pain is ok nausea is coming back
[2021-09-24] MEDS: LACTATED RINGERS 1,000 ML 125 ML IV CONT ×2 (01:40→04:22)
[2021-09-24] MEDS: ONDANSETRON INJ 4 MG/2 ML VIAL IV PUSH (01:41)
--- NOTE | 2021-09-24 04:26 | PC.NURSE ---
This patient, Carlene Sprague, was admitted to [facility] Surg Room 315-02. Patient/family oriented to hospital policies and general routines including ID bracelet, bed and alarms, visiting hours, pain management, procedures, bathroom and other care routines, personal items, smoking policy, room service/diet, and visiting hours. Valuables list has been completed. Information on how to activate the Rapid Response Team has been discussed. Patient/Family are encouraged to report perceived risks to care and to ask questions if they do not understand what they are told or what they should do.
--- NOTE | 2021-09-24 08:59 | PM.CNGS ---
Assessment and Plan Assessment and plan (1) Partial small bowel obstruction: Code(s): K56.600 - Partial intestinal obstruction, unspecified as to cause Status: Acute Assessment and Plan: exam benign, CT reviewed, will start clears and slowly ADAT, cont IV rehydration, encourage OOB (2) Esophageal cancer: Code(s): C15.9 - Malignant neoplasm of esophagus, unspecified Status: Acute Assessment and Plan: undergoing chemotherapy, known metastatic disease History of Present Illness Consult details Consult date: 09/24/21 Reason for consult: abdominal pain Requesting physician: Shea Castelan PA-C Narrative: The patient is a 81-year-old female presenting to the emergency department complaining of nausea and vomiting, crampy abdominal pain over the last 24 hours. The patient reports that she had normal bowel movement yesterday morning. The patient reports over the day yesterday she began to feel progressively more distended, and had some crampy abdominal pain. The patient developed intractable nausea and vomiting in the afternoon. The patient reports that she came to the emergency department secondary to dehydration. Of note, this morning the patient reports that she feels much better and the symptoms are largely resolved. The patient is undergoing chemotherapy for metastatic esophageal cancer. The patient had a PEG tube in the past, however that has been recently removed as the patient is now able to tolerate orals. Review of Systems Constitutional: Constitutional: Denies anorexia, Reports fatigue, Denies fever(s), Denies headache(s), Denies increased appetite, Reports lethargy, Denies malaise, Reports poor appetite, Denies weakness, Denies weight gain and Reports weight loss Eyes: Eyes: Reports no additional eye complaints ENT: Reports system reviewed and no additional complaints, except as documented Cardiovascular: Cardiovascular: Reports no additional cardiovascular complaints Respiratory: Respiratory: Reports no additional respiratory complaints Gastrointestinal: Gastrointestinal: Reports as per HPI, Reports abdominal pain, Reports belching, Reports bloating, Denies change in bowel habits, Denies change in stool character, Denies constipation, Reports GI cramping, Reports early satiety, Denies heartburn, Denies fecal incontinence, Denies diarrhea, Reports loose stools, Reports nausea and Reports vomiting Genitourinary: Genitourinary: Reports no additional female genitourinary complaints Musculoskeletal: Musculoskeletal: Reports no additional musculoskeletal complaints Integumentary/Breasts: Skin/Breast: Reports system reviewed and no additional complaints, except as docu Neurologic: Reports system reviewed and no additional complaints, except as documented Psychiatric: Psychiatric: Reports no additional psychiatric complaints Endocrine: Endocrine: Reports no additional endocrine complaints Hematologic/Lymphatic: Hematologic/Lymphatic: Reports no additional hematologic/lymphatic complaints Allergic/Immunologic: Allergic/Immunologic: Reports no additional allergic/immunologic complaints PMFSH Past Medical History Medical History Barretts esophagus Chronic neck and back pain Esophageal cancer (~04/13/21) Essential (primary) hypertension (~1994) Gastroesophageal reflux disease Hyperlipidemia, acquired Osteopenia of multiple sites (~03/20/20) Primary esophageal adenocarcinoma Shingles (herpes zoster) polyneuropathy (~1997) Transient ischemic attack on medication (~04/2016) Unspecified asthma, uncomplicated (~1983) Vitamin D deficiency Weight loss Surgical History Surgical History Encounter for feeding tube placement 05/2021 S/P cataract surgery (~2014) S/P complete hysterectomy (~1994) S/p total knee replacement, bilateral (~2011) S/P urological surgery (~2014) Transobturator
[2021-09-24 09:41] LABS: Basophils Percent Auto 0.3 % (0.2-1.2); Eosinophils Percent Auto 0.6 % (0-4.4); Hematocrit 36.9 % (37.0-47.0); Immature Granulocyte Absolute 0.01 K/mm3 (0.00-0.031); Immature Granulocyte Percent A 0.3 % (0-0.5); Lymphocytes Absolute Auto 0.87 K/mm3 (0.9-3.2); Lymphocytes Percent Auto 25.2 % (18.3-44.2); Mean Corpuscular HGB Conc 32.5 g/dl (32-36); Mean Corpuscular Hemoglobin 31.7 pg (26-34); Mean Corpuscular Volume 97.6 fl (80-100); Mean Platelet Volume 8.4 fl (7.4-10.4); Monocytes Absolute Auto 0.6 K/mm3 (0.1-0.6); Monocytes Percent Auto 17.7 % (2.6-8.5); Neutrophils Absolute Auto 1.9 K/mm3 (1.3-6.7); Neutrophils Percent Auto 55.9 % (45.5-73.1); Platelet Count Result 134 k/mm3 (150-375); Red Blood Count 3.78 M/mm3 (4.2-5.4); Red Cell Distribution Width 15.8 % (11.5-14.5); White Blood Count 3.5 K/mm3 (4.5-10.0)
[2021-09-24 09:54] LABS: Magnesium 2.3 mg/dL (1.6-2.3)
[2021-09-24 10:32] LABS: Anion Gap 2 mmol/L (8-16); Blood Urea Nitrogen 12 mg/dL (7-17); Calcium 8.1 mg/dL (8.4-10.2); Carbon Dioxide 29 mmol/L (22-30); Chloride 107 mmol/L (98-107); Estimated CRCL calculation 56 ml/min; Estimated Glomerular Filt Rate > 60; Glucose 97 mg/dL (65-110); Potassium 3.8 mmol/L (3.4-5.0); Sodium 138 mmol/L (137-145)
[2021-09-24] MEDS: PANTOPRAZOLE SODIUM IV 40 MG VIAL IV PUSH ×2 (10:47→20:21)
[2021-09-24] MEDS: FLUTICASONE PROPIONATE 0.05% NA SPR 16 GM BTL (*BKC) 2 SPRAY NASAL (10:47)
[2021-09-24] MEDS: ENOXAPARIN 40 MG/0.4 ML SYRINGE SUB-Q (10:47)
--- NOTE | 2021-09-24 13:03 | PM.IMPN ---
Progress Note: A&P Assessment and Plan (1) Partial small bowel obstruction: Code(s): K56.600 - Partial intestinal obstruction, unspecified as to cause Status: Acute Assessment and Plan: Patient is 81-year-old woman with a history of metastatic esophageal cancer stage IV with bone lesions currently undergoing radiation and chemo, with recent PEG tube removal and tolerating a diet without any issues, who presented emergency room with intractable vomiting prior to arrival. Patient denies similar symptoms in the past. Initial vitals showed elevated blood pressure 156/104, tachycardic heart rate 102, afebrile, normal oxygenation on room air. Initial labs showed normal white blood cell count, hemoconcentration with a hemoglobin of 15, hematocrit 44, slight hyponatremia at 134, normal renal function, normal LFTs, normal lipase. Normal urinalysis without signs of infection. CT abdomen pelvis showed Early/partial small bowel obstruction with multiple loops of mildly dilated small bowel measuring up to 2.8 cm which extend to a transition point in the anterior inferior right pelvis. She was admitted into the hospital with further workup and evaluation with a consult to General surgery. The patient did not have an NG tube placed and she is otherwise resting comfortably at this time without any nausea, vomiting, abdominal pain General surgery evaluated the patient and recommended starting clear liquid diet based on her symptoms. Will start her on a clear liquid diet and possibly advanced to fulls in the morning if she is feeling better Told the patient to continue monitoring symptoms and to prevent any more nausea or vomiting. Continue monitoring p.r.n. pain meds and antiemetics. Appreciate surgery's input (2) Nausea & vomiting: Code(s): R11.2 - Nausea with vomiting, unspecified Status: Acute Assessment and Plan: See above. (3) Malignant neoplasm of lower third of esophagus: Code(s): C15.5 - Malignant neoplasm of lower third of esophagus Status: Acute Assessment and Plan: Patient has undergone radiation and currently undergoing chemotherapy Follow-up in the outpatient setting with her oncologist Dr. Sow (4) Bone metastases: Code(s): C79.51 - Secondary malignant neoplasm of bone Status: Acute Assessment and Plan: Supportive care Time Spent With Patient Time with patient: 25 - 35 minutes Subjective Date/time seen: 09/24/21 13:03 Interval history: Date of service 09/24/2021: Patient states she is feeling well today. She is not having any nausea, vomiting or abdominal discomfort. She denies passing any stool or having any bowel movements today. She is interested in starting to eat or drink something. Denies any fevers, chills, chest pain, shortness of breath, cough, leg swelling, calf pain, or any other symptoms at this time. Review of Systems Review of Systems: All systems reviewed & are unremarkable except as noted in HPI and below Exam Narrative: General: 81-year-old woman sitting up in bed watching TV. Appears comfortable. In no acute distress. Skin: 1.5 x 1.5 cm cyst to her right mid back with a small well-healing incision, without any erythema, warmth, drainage noted. Left upper quadrant has a well healing old PEG tube site with small erythematous, raised area without any warmth, drainage, with slight pain to palpation but no signs of infection. No jaundice or cyanosis. Good skin turgor. Neck: Full range of motion. Supple. Respiratory: Lungs are clear to auscultation bilaterally. No bony chest wall tenderness. Cardiovascular: The heart has a regular rate and rhythm without murmur. Lower extremities: No lower extremity edema. Distal pulses are easily palpated. No
[2021-09-24] MEDS: LACTATED RINGERS 1,000 ML 70 ML IV CONT (13:48)
[2021-09-25 05:43] VITALS: BP 106/71; PULSE 65; RESP 17; TEMP 36.8; O2SAT 97
[2021-09-25 06:22] LABS: Hematocrit 36.3 % (37.0-47.0); Hemoglobin 11.6 g/dL (12.0-15.0); Mean Corpuscular Hemoglobin 30.9 pg (26-34); Mean Corpuscular Volume 96.5 fl (80-100); Mean Platelet Volume 8.7 fl (7.4-10.4); Platelet Count Result 146 k/mm3 (150-375); Red Blood Count 3.76 M/mm3 (4.2-5.4); Red Cell Distribution Width 15.8 % (11.5-14.5); White Blood Count 2.8 K/mm3 (4.5-10.0)
[2021-09-25 06:48] LABS: Anion Gap 2 mmol/L (8-16); Blood Urea Nitrogen 8 mg/dL (7-17); Calcium 7.9 mg/dL (8.4-10.2); Carbon Dioxide 26 mmol/L (22-30); Chloride 108 mmol/L (98-107); Estimated CRCL calculation 56 ml/min; Estimated Glomerular Filt Rate > 60; Glucose 92 mg/dL (65-110); Magnesium 2.4 mg/dL (1.6-2.3); Potassium 3.3 mmol/L (3.4-5.0); Sodium 136 mmol/L (137-145)
[2021-09-25] MEDS: ENOXAPARIN 40 MG/0.4 ML SYRINGE SUB-Q (08:05)
[2021-09-25] MEDS: PANTOPRAZOLE SODIUM IV 40 MG VIAL IV PUSH (08:05)
[2021-09-25] MEDS: FLUTICASONE PROPIONATE 0.05% NA SPR 16 GM BTL (*BKC) 2 SPRAY NASAL (08:05)
--- NOTE | 2021-09-25 10:08 | PM.DS ---
DS: Admitting Diagnosis Discharge Date 09/25/21 Admitting Diagnosis Vomiting DS: Discharge Diagnosis Discharge Diagnosis (1) Partial small bowel obstruction: Code(s): K56.600 - Partial intestinal obstruction, unspecified as to cause Status: Acute Assessment and Plan: Patient is 81-year-old woman with a history of metastatic esophageal cancer stage IV with bone lesions currently undergoing radiation and chemo, with recent PEG tube removal and tolerating a diet without any issues, who presented emergency room with intractable vomiting prior to arrival. Patient denies similar symptoms in the past. Initial vitals showed elevated blood pressure 156/104, tachycardic heart rate 102, afebrile, normal oxygenation on room air. Initial labs showed normal white blood cell count, hemoconcentration with a hemoglobin of 15, hematocrit 44, slight hyponatremia at 134, normal renal function, normal LFTs, normal lipase. Normal urinalysis without signs of infection. CT abdomen pelvis showed Early/partial small bowel obstruction with multiple loops of mildly dilated small bowel measuring up to 2.8 cm which extend to a transition point in the anterior inferior right pelvis. She was admitted into the hospital with further workup and evaluation with a consult to General surgery. The patient did not have an NG tube placed and she is otherwise resting comfortably at this time without any nausea, vomiting, abdominal pain General surgery evaluated the patient and recommended advancing her diet as tolerated. She is currently tolerating a low residual diet at this time without any more symptoms. She is passing gas, has not had any bowel movements yet. No abdominal pain. She stable this time to be discharged home to continue on a low-fiber diet for 2 weeks and follow-up with her doctor for further evaluation and surgeon as needed for any more issues. Follow-up instructions given. Return to ER warnings given. Patient understands and agrees the plan all questions answered. (2) Nausea & vomiting: Code(s): R11.2 - Nausea with vomiting, unspecified Status: Acute Assessment and Plan: See above. (3) Malignant neoplasm of lower third of esophagus: Code(s): C15.5 - Malignant neoplasm of lower third of esophagus Status: Acute Assessment and Plan: Patient has undergone radiation and currently undergoing chemotherapy Follow-up in the outpatient setting with her oncologist Dr. Sow (4) Bone metastases: Code(s): C79.51 - Secondary malignant neoplasm of bone Status: Acute Assessment and Plan: Supportive care DS: Summary Hospital Course Hospital Course: See above Status at Discharge Cognitive/behavioral status at discharge: Stable, improved. Time Spent with Patient Time attestation: Total time spent providing and/or coordinating discharge services: 40 Time spent: Greater than 30 minutes Exam Narrative: General: 81-year-old woman sitting up in bed watching TV. Appears comfortable. In no acute distress. Skin: 1.5 x 1.5 cm cyst to her right mid back with a small well-healing incision, without any erythema, warmth, drainage noted. Left upper quadrant has a well healing old PEG tube site with small erythematous, raised area without any warmth, drainage, with slight pain to palpation but no signs of infection. No jaundice or cyanosis. Good skin turgor. Neck: Full range of motion. Supple. Respiratory: Lungs are clear to auscultation bilaterally. No bony chest wall tenderness. Cardiovascular: The heart has a regular rate and rhythm without murmur. Lower extremities: No lower extremity edema. Distal pulses are easily palpated. No calf tenderness to palpation. Gastrointestinal: Active bowel sounds in all
[2021-09-25] MEDS: POTASSIUM CHLORIDE 20 MEQ TABLET 40 MEQ PO (10:11)
== END 2021-09-25 10:49 | disposition home or self-care (01) | DRG 389 ==
LOC: ANHED 23:11 → ANH3MEDSUR 09-24 01:34
PROVIDERS: Physician Assistant; Admitting Provider Internal Medicine; Emergency Provider Emergency Medicine; PCP Family Medicine; Visit Provider Internal Medicine
DX: K56.600 Partial intestinal obstruction, unspecified as to cause (principal); C15.5 Malignant neoplasm of lower third of esophagus; C79.51 Secondary malignant neoplasm of bone; F17.210 Nicotine dependence, cigarettes, uncomplicated; E78.5 Hyperlipidemia, unspecified; K21.9 Gastro-esophageal reflux disease without esophagitis; Z79.82 Long term (current) use of aspirin; Z79.899 Other long term (current) drug therapy
CPT/HCPCS: 36415; 74177; 80048; 80053; 81001; 83690; 83735; 85025; 85027; 96361; 96374; 96375; 96376; 97161; 97165; 99285; A9270; C9113; G0378; J1170; J1650; J2405; J7120; Q9967

== ENCOUNTER 2021-12-31 07:18 | Outpatient (CLI) | payer MEDICARE, SELFPAY ==
--- NOTE | ~2021-12-31 | CT_ITS ---
EXAMINATION: CT chest abdomen pelvis w con DATE: 12/31/2021 08:47 INDICATION: Cancer of distal third of esophagus. TECHNIQUE: Computed tomography (CT) of the chest, abdomen, and pelvis was performed with 100 mL Omnip aque 350 intravenous contrast. Automated exposure control and iterative reconstruction technique were employed. The dose-length product was 461.64 mGy-cm. COMPARISON: CT abdomen and pelvis 09/23/2021 FINDINGS: CHEST CT: There are patchy airspace and groundglass opacities involving the right middle lobe, lingula, and low er lobes with paramediastinal architectural distortion. No pleural effusion. The heart size is normal . There are coronary artery calcifications. No pericardial effusion. There are acute pulmonary emboli in all lobes bilaterally. There is a right internal jugular port with tip in superior cavoatrial mani ction. There is severe thoracic spondylosis. ABDOMEN/PELVIS CT: The liver, gallbladder, spleen, pancreas, and right adrenal gland are normal. There is a 2.5 cm mass in left adrenal gland measuring soft tissue attenuation without change from 04/09/21, likely an adenoma . The kidneys are normal. There is diverticulosis of the colon without evidence of diverticulitis. Th ere are no dilated loops of bowel. The appendix is normal. There are no pathologically enlarged lymph nodes. There is no free intraperitoneal fluid. There are lytic lesions of bone including the right i lium and left sacrum. There is a hemangioma in L4. IMPRESSION: 1. Acute pulmonary emboli in all lobes bilaterally. I called this result directly to the patient and recommended she go directly to the emergency room for further evaluation. She agreed to go and mentio jolly that her daughter could take her. 2. Patchy airspace and groundglass opacities in the inferior lungs, likely a combination of atelectas is, infarcts, and paramediastinal radiation fibrosis. 3. Stable lytic lesions in right ilium and left sacral ala, consistent with metastatic esophageal can cer. Reviewed, dictated and finalized at location A. IMPRESSION: 1. Acute pulmonary emboli in all lobes bilaterally. I called this result direct ly to the patient and recommended she go directly to the emergency room for fur ther evaluation. She agreed to go and mentioned that her daughter could take he r. 2. Patchy airspace and groundglass opacities in the inferior lungs, likely a co mbination of atelectasis, infarcts, and paramediastinal radiation fibrosis. 3. Stable lytic lesions in right ilium and left sacral ala, consistent with met astatic esophageal cancer.
--- NOTE | ~2021-12-31 | NM_ITS ---
EXAMINATION: NM bone scan whole body DATE: 12/31/2021 15:32 INDICATION: Esophageal cancer TECHNIQUE: 25.5 mCi Tc-99m HDP was administered intravenously. Delayed whole-body scintigrams were o btained. COMPARISON: Bone scan dated 09/14/[address] chest, abdomen and pelvis dated 12/31/2021 FINDINGS: Photopenic defects such with bilateral total knee arthroplasties. Again seen is a large region of inc reased uptake surrounding a central photopenic region in the right supra-acetabular region correspond ing to the previous noted FDG avid lytic lesion on prior PET/CT consistent with metastatic disease. A dditional smaller foci of abnormal increased uptake at the calvarium to the right of the vertex, at t he right lesser trochanter and anterior left seventh rib. Likely degenerative joint centered uptake a t the bilateral feet and elbows and at the bilateral glenohumeral, acromioclavicular and sternoclavic ular articulations. Additional unchanged mild likely degenerative uptake at a couple cervical facet j oints. No new foci of suspicious uptake to suggest new metastatic lesions. IMPRESSION: 1. Unchanged atypical foci of increased uptake as detailed above suspicious for metastatic disease. Reviewed, dictated and finalized at location [facility].
== END 2021-12-31 07:19 | disposition home or self-care (01) ==
LOC: ANHIMG 07:25
PROVIDERS: PCP Family Medicine; Visit Provider Internal Medicine Hematology & Oncology
DX: C15.5 Malignant neoplasm of lower third of esophagus (principal); I26.99 Other pulmonary embolism without acute cor pulmonale
CPT/HCPCS: 71260; 74177; 78306; A9561; Q9967

== ENCOUNTER 2021-12-31 21:46 | Observation (INO) | payer MEDICARE, SELFPAY ==
--- NOTE | ~2021-12-31 | US_ITS ---
EXAMINATION: US venous doppler [facility] DATE: 01/01/2022 08:03 INDICATION: Shortness of breath, pulmonary embolism TECHNIQUE: Santoyo scale images without and with compression and Doppler images of the bilateral lower e xtremity veins were obtained. COMPARISON: 09/11/2012 FINDINGS: The right common femoral vein, profunda femoral vein, femoral vein, popliteal vein, peroneal trunk, p osterior tibial veins, and greater saphenous vein are patent. The left common femoral vein, profunda femoral vein, femoral vein, popliteal vein, peroneal trunk, po sterior tibial veins, and greater saphenous vein are patent. IMPRESSION: 1. Patent bilateral lower extremity veins. No evidence of deep venous thrombosis. Reviewed, dictated and finalized at location A. IMPRESSION: 1. Patent bilateral lower extremity veins. No evidence of deep venous thrombosi s.
[2021-12-31 21:49] VITALS: BP 144/86; PULSE 107; RESP 20; TEMP 36.3; O2SAT 99
--- NOTE | 2021-12-31 21:53 | ECG_ITS ---
Measurements Intervals Sabael Rate: 91 P: 43 AL: 148 QRS: -24 QRSD: 76 T: 30 QT: 341 QTc: 421 Interpretive Statements SINUS RHYTHM VOLTAGE CRITERIA FOR LVH [MEETS CRITERIA IN ONE OF: R(aVL), S(V1), R(V5), R(V5/V6)+S(V1)] POSSIBLE ANTEROSEPTAL MYOCARDIAL INFARCTION , PROBABLY OLD [30 ms Q WAVE IN V1-V4] ABNORMAL ECG NO PREVIOUS ECG AVAILABLE FOR COMPARISON Electronically Signed On 01-01-2022 16:45:07 CDT by Jono Nguyen M.D.
[2022-01-01] VITALS (20 sets, daily range): BP systolic 112–151; BP diastolic 56–92; PULSE 74–94; RESP 13–21; TEMP 36.4–37.1; O2SAT 96–100; BMI 26.1
[2022-01-01 00:01] LABS: Alanine Aminotransferase 12 U/L (4-35); Albumin Level 3.4 g/dL (3.5-5.1); Alkaline Phosphatase 63 U/L (38-126); Anion Gap 6 mmol/L (8-16); Aspartate Amino Transferase 20 U/L (14-36); Bilirubin,Total 0.5 mg/dL (0.2-1.3); Blood Urea Nitrogen 11 mg/dL (7-17); Calcium 8.5 mg/dL (8.4-10.2); Carbon Dioxide 25 mmol/L (22-30); Chloride 104 mmol/L (98-107); Estimated CRCL calculation 56 ml/min; Estimated Glomerular Filt Rate > 60; Glucose 107 mg/dL (65-110); Potassium 3.9 mmol/L (3.4-5.0); Sodium 135 mmol/L (137-145)
[2022-01-01 00:08] LABS: Prothrombin Time 13.2 Seconds (11.1-14.7)
[2022-01-01 00:11] LABS: Basophils Percent Auto 0.3 % (0.2-1.2); Eosinophils Absolute Auto 0.1 K/mm3 (0-0.3); Eosinophils Percent Auto 3.2 % (0-4.4); Hematocrit 32.4 % (37.0-47.0); Hemoglobin 10.6 g/dL (12.0-15.0); Immature Granulocyte Absolute 0.02 K/mm3 (0.00-0.031); Immature Granulocyte Percent A 0.6 % (0-0.5); Lymphocytes Absolute Auto 0.72 K/mm3 (0.9-3.2); Lymphocytes Percent Auto 22.9 % (18.3-44.2); Mean Corpuscular HGB Conc 32.7 g/dl (32-36); Mean Corpuscular Hemoglobin 29.9 pg (26-34); Mean Corpuscular Volume 91.3 fl (80-100); Mean Platelet Volume 8.8 fl (7.4-10.4); Monocytes Absolute Auto 0.1 K/mm3 (0.1-0.6); Monocytes Percent Auto 3.2 % (2.6-8.5); Neutrophils Absolute Auto 2.2 K/mm3 (1.3-6.7); Neutrophils Percent Auto 69.8 % (45.5-73.1); Platelet Count Result 129 k/mm3 (150-375); Red Blood Count 3.55 M/mm3 (4.2-5.4); Red Cell Distribution Width 14.5 % (11.5-14.5); White Blood Count 3.1 K/mm3 (4.5-10.0)
--- NOTE | 2022-01-01 00:43 | ED.SOB ---
HPI - SOB/Dyspnea General Chief Complaint: Shortness of Breath/Dyspnea Stated Complaint: reports blood clots in her lungs Time Seen by Provider: 12/31/21 22:49 History of Present Illness HPI Narrative: Patient is a 81-year-old female who presents the ER with concern for pulmonary emboli. Patient has history of metastatic gastric cancer. She sees Dr. Sow. Patient had an outpatient CT scan of her chest/abdomen/pelvis for staging purposes when incidentally was found that she had scattered pulmonary emboli bilaterally. Patient reports she has had some chronic dyspnea over the last couple weeks and cannot report recent change in her shortness of breath. She has noted some occasional pains in her back that were new over the last week. No leg swelling or cramping in her calves. No syncope. Related Data Home Medications Medication Instructions Recorded Confirmed albuterol sulfate 90 mcg/actuation 1 puff INHALATION Q4H PRN 09/08/20 01/01/22 aerosol inhaler cetirizine [Zyrtec] 10 mg PO DAILY 09/24/21 01/01/22 cholecalciferol (vitamin D3) 125 mcg PO DAILY 09/24/21 01/01/22 cyclobenzaprine 10 mg PO TID PRN 09/24/21 01/01/22 simvastatin 20 mg PO DAILY 09/24/21 01/01/22 calcium carbonate [Calcium 600] 600 mg PO BID 12/06/21 01/01/22 esomeprazole magnesium 40 mg PO BID 01/01/22 01/01/22 tramadol 50 mg PO BID PRN 01/01/22 01/01/22 Allergies Allergy/AdvReac Type Severity Reaction Status Date / Time No Known Allergies Allergy Verified 01/01/22 02:55 Review of Systems Review of Systems: All systems reviewed & are unremarkable except as noted in HPI and below Constitutional: Constitutional: Denies chills, Denies fever(s) and Reports weakness ENT: Denies nasal congestion and Denies sore throat Cardiovascular: Cardiovascular: Denies chest pain, Denies rapid heart rate and Denies radiating jaw, neck or arm pain Respiratory: Respiratory: Denies cough, Reports dyspnea and Denies wheezing Gastrointestinal: Gastrointestinal: Denies abdominal pain, Denies nausea and Denies vomiting Musculoskeletal: Musculoskeletal: Reports back pain, Denies arthralgias and Denies muscle cramps [facility] Past Medical History Medical History (Updated 01/01/22 @ 00:47 by Ike Rojo MD) Barretts esophagus Chronic neck and back pain Esophageal cancer (~04/13/21) Essential (primary) hypertension (~1994) Gastroesophageal reflux disease Gastrostomy site erythema Hyperlipidemia, acquired Osteopenia of multiple sites (~03/20/20) Primary esophageal adenocarcinoma Shingles (herpes zoster) polyneuropathy (~1997) Transient ischemic attack on medication (~04/2016) Unspecified asthma, uncomplicated (~1983) Vitamin D deficiency Weight loss Surgical History Surgical History Encounter for feeding tube placement 05/2021 S/P cataract surgery (~2014) S/P complete hysterectomy (~1994) S/p total knee replacement, bilateral (~2011) S/P urological surgery (~2014) Transobturator taping with cystoscopy. Family History Family History Father Family history of diabetes mellitus in first degree relative Hypertension Mother Family history of diabetes mellitus in first degree relative Hypertension Sibling Family history of osteoarthritis Family history of diabetes mellitus in first degree relative Esophageal adenocarcinoma Lymph node cancer Social History Social History Social History: Surrogate decision maker: Nubia Leal, daughter. Code status: Full code. Smoking packs per day: 1 Smoking cigarettes per day: 20.0 Years smoked: 50 Smoking pack-years: 50.00 Smoking status: Former smoker Tobacco type: cigarettes Second hand tobacco smoke exposure: Yes Alcohol intake: never Drinks per week: 0 Alcohol use details: Sparingly. Substance use: never
[2022-01-01] MEDS: ENOXAPARIN 80 MG/0.8 ML SYRINGE 70 MG SUB-Q ×2 (01:19→12:45)
--- NOTE | 2022-01-01 02:30 | ADMGEN ---
This patient, Carlene Sprague, was admitted to Medical Room 243-01. Patient/family oriented to hospital policies and general routines including ID bracelet, bed and alarms, visiting hours, pain management, procedures, bathroom and other care routines, personal items, smoking policy, room service/diet, and visiting hours. Information on how to activate the Rapid Response Team has been discussed. Patient/Family are encouraged to report perceived risks to care and to ask questions if they do not understand what they are told or what they should do.
--- NOTE | 2022-01-01 08:50 | PM.IMPN ---
Progress Note: A&P Assessment and Plan (1) Pulmonary embolism: Code(s): I26.99 - Other pulmonary embolism without acute cor pulmonale Status: Acute Assessment and Plan: Therapeutic Lovenox Doppler of lower extremity Monitor for any bleeding Benefit outweigh the risks (2) Malignant neoplasm of lower third of esophagus: Code(s): C15.5 - Malignant neoplasm of lower third of esophagus Status: Acute Assessment and Plan: Will get old records (3) Hyperlipidemia, acquired: Code(s): E78.5 - Hyperlipidemia, unspecified Status: Acute Assessment and Plan: Continue home medication (4) Essential (primary) hypertension: Onset Date: ~1994 Code(s): I10 - Essential (primary) hypertension Status: Chronic Assessment and Plan: Continue to monitor Subjective Date/time seen: 01/01/22 08:50 Interval history: Patient seen and examined Patient was sent to the ER for evaluation of abnormal CT scan of the chest patient has history of metastatic GI cancer has CT scan of the chest abdomen pelvis for staging showed multiple pulmonary emboli was sent to the ER for further evaluation and treatment Patient feels better today started on therapeutic Lovenox Patient denies fever headache chest pain I am seeing the patient for pulmonary embolism Exam Narrative: Alert Chest no wheeze crackles Abdomen nontender nondistended CVS S1 + S2 Lower extremity edema Objective Data Vital Signs Vital Signs: Vital Signs - 24 hr 12/31/21 21:49 01/01/22 00:04 01/01/22 00:08 Temperature 97.4 F L Pulse Rate 107 H 80 79 Respiratory Rate 20 14 19 Blood Pressure 144/86 H 141/83 H 141/83 H Pulse Oximetry 99 99 99 01/01/22 00:09 01/01/22 00:15 01/01/22 01:01 Temperature Pulse Rate 77 78 79 Respiratory Rate 19 21 H 20 Blood Pressure 130/70 Pulse Oximetry 99 99 100 01/01/22 01:02 01/01/22 02:56 01/01/22 03:01 Temperature 97.8 F Pulse Rate 80 80 86 Respiratory Rate 13 16 Blood Pressure 151/63 H Pulse Oximetry 100 100 01/01/22 03:12 01/01/22 04:00 01/01/22 06:07 Temperature 97.8 F 97.9 F Pulse Rate 86 82 76 Respiratory Rate 16 16 Blood Pressure 151/63 H 112/56 L Pulse Oximetry 98 Intake/Output Intake/Output: Intake & Output 12/29/21 12/30/21 12/31/21 01/01/22 23:59 23:59 23:59 23:59 Intake Total 0 Balance 0 Meds/Results Medications: Active Medications Generic Name Dose Route Start Last Admin Trade Name Freq PRN Reason Stop Dose Admin Acetaminophen 650 mg 01/01/22 00:45 Acetaminophen 325 Mg Tablet PO Q4H PRN Mild Pain (1-3) or Fever Hydrocodone Bitart/Acetaminophen 1 tab 01/01/22 00:45 Hydrocodone/Acetaminophen (*Crx) 5-325 Mg Tablet PO Q4H PRN Pain Rated 4-6 Albuterol 1 puff 01/01/22 08:48 Albuterol Sulfate (*Sp) Aerosol 1 Puff INHALATION Q4H PRN Shortness Of Breath Cyclobenzaprine HCl 10 mg 01/01/22 08:48 Cyclobenzaprine Hcl 10 Mg Tablet PO TID PRN muscle spasms Enoxaparin Sodium 70 mg 01/01/22 13:00 Enoxaparin 80 Mg/0.8 Ml Syringe SUB-Q Q12H [facility] Fluticasone Propionate 2 spray 01/01/22 09:00 Fluticasone Propionate 0.05% Na Spr 16 Gm Btl (*Bkc) NASAL DAILY VIRGIE Acetaminophen 1,000 mg in 100 mls @ 400 mls/hr 01/01/22 00:45 Ofirmev 1,000 Mg Ivpb IVPB 01/02/22 00:44 Q6H PRN Mild Pain (1-3) or Fever Non-Formulary Medication 600 mg 01/01/22 09:00 Calcium Carbonate [Calcium 600] PO 01/31/22 08:59 BID VIRGIE Non-Formulary Medication 10 mg 01/01/22 09:00 Cetirizine [Zyrtec] PO 01/31/22 08:59 DAILY VIRGIE Non-Formulary Medication 40 mg 01/01/22 09:00 Esomeprazole Magnesium PO 01/31/22 08:59 BID VIRGIE Ondansetron HCl 4 mg 01/01/22 00:45 Ondansetron Inj 4 Mg/2 Ml Vial IV PUSH Q4H PRN Nausea Potassium Chloride 20 meq 01/01/22 09:00 Potassium Chloride 20 Meq Tablet.Er
[2022-01-01] MEDS: POTASSIUM CHLORIDE 20 MEQ TABLET.ER PO (10:47)
[2022-01-01] MEDS: LORATADINE 10 MG TABLET PO (10:47)
[2022-01-01] MEDS: FLUTICASONE PROPIONATE 0.05% NA SPR 16 GM BTL (*BKC) 2 SPRAY NASAL (10:47)
[2022-01-01] MEDS: CALCIUM CARBONATE (OSCAL) 500 MG TABLET PO ×2 (10:47→16:33)
[2022-01-01] MEDS: CHOLECALCIFEROL 1,000 UNITS TABLET 5000 UNITS PO (10:47)
[2022-01-01] MEDS: SIMVASTATIN 20 MG TABLET PO (10:48)
[2022-01-01] MEDS: PANTOPRAZOLE 40 MG TABLET PO ×2 (10:48→20:04)
[2022-01-01] MEDS: ACETAMINOPHEN 325 MG TABLET 650 MG PO (20:04)
[2022-01-02] VITALS (9 sets, daily range): BP systolic 100–112; BP diastolic 60–76; PULSE 74–88; RESP 14–16; TEMP 36.1–36.4; O2SAT 96–99
[2022-01-02] MEDS: ENOXAPARIN 80 MG/0.8 ML SYRINGE 70 MG SUB-Q (00:35)
[2022-01-02] MEDS: PANTOPRAZOLE 40 MG TABLET PO (08:32)
[2022-01-02] MEDS: FLUTICASONE PROPIONATE 0.05% NA SPR 16 GM BTL (*BKC) 2 SPRAY NASAL (08:32)
[2022-01-02] MEDS: POTASSIUM CHLORIDE 20 MEQ TABLET.ER PO (08:32)
[2022-01-02] MEDS: LORATADINE 10 MG TABLET PO (08:32)
[2022-01-02] MEDS: CHOLECALCIFEROL 1,000 UNITS TABLET 5000 UNITS PO (08:32)
[2022-01-02] MEDS: CALCIUM CARBONATE (OSCAL) 500 MG TABLET PO (08:32)
[2022-01-02] MEDS: SIMVASTATIN 20 MG TABLET PO (08:32)
--- NOTE | 2022-01-02 09:23 | PM.DS ---
DS: Admitting Diagnosis Discharge Date 01/02/[address] scan showed PE DS: Discharge Diagnosis Discharge Diagnosis (1) Pulmonary embolism: Code(s): I26.99 - Other pulmonary embolism without acute cor pulmonale Status: Acute Assessment and Plan: Therapeutic Lovenox Patient will be discharged on Eliquis follow-up with PCP as outpatient Monitor for any bleeding Benefit outweigh the risks (2) Malignant neoplasm of lower third of esophagus: Code(s): C15.5 - Malignant neoplasm of lower third of esophagus Status: Acute Assessment and Plan: Follow-up with Heme-Onc as outpatient (3) Hyperlipidemia, acquired: Code(s): E78.5 - Hyperlipidemia, unspecified Status: Acute Assessment and Plan: Continue home medication (4) Essential (primary) hypertension: Onset Date: ~1994 Code(s): I10 - Essential (primary) hypertension Status: Chronic Assessment and Plan: Continue to monitor DS: Summary Hospital Course Hospital Course: Patient was sent to the ER for evaluation of abnormal CT scan of the chest patient has history of metastatic GI cancer has CT scan of the chest abdomen pelvis for staging showed multiple pulmonary emboli was sent to the ER for further evaluation and treatment patient was started on therapeutic Lovenox her condition continued to improve patient will be discharged on Eliquis On admission blood sugar was mildly elevated diet and exercise follow-up with PCP as outpatient Time Spent with Patient Time attestation: Total time spent providing and/or coordinating discharge services: Exam Narrative: Alert Chest no wheeze crackles Abdomen nontender nondistended CVS S1 + S2 Lower extremity edema DS: Data Data Completed and Pending Labs on day of discharge: Preliminary micro results at discharge 01/01/22 04:43 Blood Culture - Preliminary Blood 01/01/22 04:43 Blood Culture - Preliminary Blood Discharge Plan Discharge Attending physician on discharge: Favio Blunt M.A. Discharging Clinician: Favio Blunt M.A. Patient Disposition: Home, Self-Care Activity: as tolerated Diet: heart healthy and diabetic Patient Instructions: Antibiotic Form, Pulmonary Embolism (DC) Stand Alone Forms: General Discharge Information Follow-up/Referrals: Gavin Baum MD [Primary Care Provider] - Discharge Medications: New Eliquis 5 mg Tablet 10 mg PO Q12HR 7 Days Qty: 28 RF: 0 Eliquis 5 mg tablet 5 mg PO BID Qty: 60 RF: 0 Continued calcium carbonate [Calcium 600] 600 mg calcium (1,500 mg) Tablet 600 mg PO BID RF: 0 albuterol sulfate [ProAir HFA] 90 mcg/actuation HFA aerosol inhaler 1 puff inhalation Q4H PRN (Reason: Shortness Of Breath) RF: 0 cyclobenzaprine 10 mg tablet 10 mg PO TID PRN (Reason: muscle spasms) RF: 0 cetirizine [Zyrtec] 10 mg tablet 10 mg PO DAILY RF: 0 simvastatin 20 mg tablet 20 mg PO DAILY RF: 0 cholecalciferol (vitamin D3) 125 mcg (5,000 unit) capsule 125 mcg PO DAILY RF: 0 tramadol 50 mg tablet 50 mg PO BID PRN (Reason: Pain, Moderate) RF: 0 esomeprazole magnesium 40 mg capsule,delayed release(DR/EC) 40 mg PO BID RF: 0 fluticasone propionate [Flonase Allergy Relief] 50 mcg/actuation spray,suspension 2 spray NASAL DAILY Qty: 15.8 RF: 0 potassium chloride 20 mEq tablet extended release 20 meq PO DAILY Qty: 90 RF: 1 Date of admission: 01/01/22 00:45 Primary Care Provider: Gavin Baum Admitting Provider: Flor Stallworth V. Attending physician on admission: Flor Stallworth V. Condition: Stable
--- NOTE | 2022-01-03 12:05 | PM.IMHP ---
H&P: HPI History of Present Illness Date/Time: 01/01/22 12:05 Chief Complaint: 81 years old female with past medical care history GI cancer was sent to the ER for evaluation of abnormal CT scan of the chest abdomen and pelvis . the CT scan of the chest abdomen pelvis was done for staging showed multiple pulmonary emboli was sent to the ER for further evaluation and treatment patient denies chest pain fever or chills patient does not have history of PE or DVT in the past patient denies significant personal or family history of easy bleeding patient was started on therapeutic Lovenox Review of Systems Review of Systems: All systems reviewed & are unremarkable except as noted in HPI and below PMFSH Past Medical History Medical History Barretts esophagus Chronic neck and back pain Esophageal cancer (~04/13/21) Essential (primary) hypertension (~1994) Gastroesophageal reflux disease Gastrostomy site erythema Hyperlipidemia, acquired Osteopenia of multiple sites (~03/20/20) Primary esophageal adenocarcinoma Shingles (herpes zoster) polyneuropathy (~1997) Transient ischemic attack on medication (~04/2016) Unspecified asthma, uncomplicated (~1983) Vitamin D deficiency Weight loss Surgical History Surgical History Encounter for feeding tube placement 05/2021 S/P cataract surgery (~2014) S/P complete hysterectomy (~1994) S/p total knee replacement, bilateral (~2011) S/P urological surgery (~2014) Transobturator taping with cystoscopy. Family History Family History Father Family history of diabetes mellitus in first degree relative Hypertension Mother Family history of diabetes mellitus in first degree relative Hypertension Sibling Family history of osteoarthritis Family history of diabetes mellitus in first degree relative Esophageal adenocarcinoma Lymph node cancer Social History Social History Social History: Surrogate decision maker: Nubia Leal, daughter. Code status: Full code. Smoking packs per day: 1 Smoking cigarettes per day: 20.0 Years smoked: 50 Smoking pack-years: 50.00 Smoking status: Former smoker Tobacco type: cigarettes Second hand tobacco smoke exposure: Yes Alcohol intake: never Drinks per week: 0 Alcohol use details: Sparingly. Substance use: never Substance use type: does not use Additional living arrangements comments: The patient has been for 5 years. She lives in her own home in [place]. Daughter lives nearby. Spiritual care concerns: No Meds Home Medications and Allergies Home Medications Medication Instructions Recorded Confirmed Type fluticasone propionate 50 2 spray NASAL DAILY #15.8 ml 11/18/19 01/03/22 Rx mcg/actuation nasal spray,suspension albuterol sulfate 90 mcg/actuation 1 puff INHALATION Q4H PRN 09/08/20 01/03/22 History aerosol inhaler cetirizine [Zyrtec] 10 mg PO DAILY 09/24/21 01/03/22 History cholecalciferol (vitamin D3) 125 mcg PO DAILY 09/24/21 01/03/22 History cyclobenzaprine 10 mg PO TID PRN 09/24/21 01/03/22 History simvastatin 20 mg PO DAILY 09/24/21 01/03/22 History calcium carbonate [Calcium 600] 600 mg PO BID 12/06/21 01/03/22 History potassium chloride 20 mEq 20 meq PO DAILY #90 tablet 12/16/21 01/03/22 Rx tablet,extended release esomeprazole magnesium 40 mg PO BID 01/01/22 01/03/22 History tramadol 50 mg PO BID PRN 01/01/22 01/03/22 History apixaban [Eliquis] 5 mg PO BID #60 tablet 01/02/22 01/03/22 Rx apixaban [Eliquis] 10 mg PO Q12HR 7 Days #28 tablet 01/02/22 01/03/22 Rx Allergies Allergy/AdvReac Type Severity Reaction Status Date / Time No Known Allergies Allergy Verified 01/03/22 09:44 Exam Const: General: in distress HENMT: Mouth
== END 2022-01-02 12:50 | disposition home or self-care (01) ==
LOC: ANHED 01-01 00:47 → ANH2MED 01-01 03:30
PROVIDERS: Admitting Provider Internal Medicine; Emergency Provider Emergency Medicine; PCP Family Medicine; Visit Provider Internal Medicine
DX: I26.99 Other pulmonary embolism without acute cor pulmonale (principal); C15.5 Malignant neoplasm of lower third of esophagus; C79.9 Secondary malignant neoplasm of unspecified site; I10 Essential (primary) hypertension; J45.909 Unspecified asthma, uncomplicated; E78.5 Hyperlipidemia, unspecified; E55.9 Vitamin D deficiency, unspecified; K21.9 Gastro-esophageal reflux disease without esophagitis; M85.89 Other specified disorders of bone density and structure, multiple sites; M54.2 Cervicalgia; M54.9 Dorsalgia, unspecified; G89.29 Other chronic pain; Z96.653 Presence of artificial knee joint, bilateral; Z87.891 Personal history of nicotine dependence
CPT/HCPCS: 36415; 80053; 85025; 85610; 87040; 93005; 93970; 96372; 99285; A9270; G0378; J1650

== ENCOUNTER 2022-04-19 08:26 | Outpatient (CLI) | payer MEDICARE, SELFPAY ==
--- NOTE | ~2022-04-19 | CT_ITS ---
EXAMINATION: CT chest abdomen pelvis w con DATE: 04/19/2022 09:09 INDICATION: Cancer of distal third of esophagus; restaging TECHNIQUE: Computed tomography (CT) of the chest, abdomen, and pelvis was performed with 100 CC Omnip aque 300 intravenous contrast. Automated exposure control and iterative reconstruction technique were employed. Exam dose: 496.19 mGy-cm total exam DLP. COMPARISON: 12/31/2021 CT chest abdomen pelvis 09/14/2021 CT chest FINDINGS: CHEST CT: Focal reticulation and mild bronchiectasis in the perimediastinal bilateral lower lobes may be postop erative radiation change. Mild bilateral lower lobe dependent atelectasis. Right Port-A-Cath catheter tip is situated near the superior cavoatrial junction. There is mild circumferential soft tissue thickening of the distal esophagus; residual or recurrent m alignancy cannot be excluded on this examination. Stable mild soft tissue prominence in the subcarinal area since 09/14/2021 and 12/31/2021, which may b e consistent with stable lymphadenopathy. No hilar or mediastinal mass lesion or lymphadenopathy is noted otherwise. Normal heart size. No thoracic aortic aneurysm or dissection. No pericardial effusion. ABDOMEN/PELVIS CT: .No suspicious hepatic mass lesion. Normal splenic size. No pancreatic mass lesion or calcification o r ductal dilatation. The gallbladder is unremarkable. No bile duct dilatation. Normal morphology of the right adrenal gland. Stable 2.3 cm left adrenal mass since 12/31/2021 and 09/01. The kidneys are unremarkable. No urinary tract calculus or hydroureteronephrosis. Normal caliber and extensive atherosclerotic calcification of the abdominal aorta. No intraperitoneal or retroperitoneal or pelvic mass lesion or adenopathy or ascites is detected. Numerous diverticula of the left and to a lesser extent right colon; no CT evidence of diverticulitis . No bowel obstruction or intraperitoneal free air. The urinary bladder is unremarkable. Status post hysterectomy. There is skin thickening and a prominent surface depression or ulceration along the left mid anterior abdominal wall with surrounding skin thickening. A 2.8 cm wide irregular soft tissue mass extends fr om the skin surface to the left anterior abdominal wall musculature. Consider malignant seeding along a surgical incision site. Abscess is another consideration. Clinical correlation is advised. Stable lytic lesions of the right ilium and left sacral alar 12/31/2021. These are reportedly biopsy pr oven esophageal cancer metastases. IMPRESSION: Interval small left pleural effusion since 12/31/2021 Circumferential soft tissue thickening of the distal esophagus, nonspecific. Residual or recurrent ma lignancy is not excluded Stable mild soft tissue prominence in the subcarinal area since 09/14/2021 Stable lytic lesions of right ilium and left sacrum, reportedly biopsy proven esophageal metastases Large irregular soft tissue ulcerating mass and surrounding skin thickening of the left anterior abdo edmar wall, of concern for malignancy, possibly malignant seeding of a surgical incision site; recomm end clinical correlation Reviewed, dictated and finalized at [facility]. Reviewed, dictated and finalized at location [facility]. IMPRESSION: Interval small left pleural effusion since 12/31/2021 Circumferential soft tissue thickening of the distal esophagus, nonspecific. Re sidual or recurrent malignancy is not excluded Stable mild soft tissue prominence in the subcarinal area since 09/14/2021 Stable lytic lesions of right ilium and left sacrum, reportedly biopsy proven e sophageal metastases Large irregular soft tissue ulcerating mass and surrounding skin thickening of the left anterior abdominal wall, of concern for jono
--- NOTE | ~2022-04-19 | NM_ITS ---
EXAMINATION: NM bone scan whole body DATE: 04/19/2022 12:07 INDICATION: Cancer of the distal third of the esophagus TECHNIQUE: 27.5 mCi Tc-99m HDP was administered intravenously. Delayed whole-body scintigrams were o btained. COMPARISON: CT chest, abdomen and pelvis dated 04/19/2022 FINDINGS: Photopenic defects at the bilateral knees consistent with total knee arthroplasties. Mild patchy incr eased uptake in the left innominate bone most prominent along the iliac crest and in the supra-acetab ular region which corresponds to a predominantly lytic lesions on CT consistent with metastatic disea se. Additional moderate increased uptake region of the left sacroiliac joint also with corresponding lytic lesion along the lateral aspect of the left sacral ala. Small focus of mild increased uptake at the right lesser tuberosity without a clearly discernible corresponding bone lesion but also suspici ous for metastases. These regions all appear similar as on the prior bone scan. Larger region of prom inent increased uptake at the skull just to the right of the vertex which is significantly increased in size since the prior study consistent with progression of metastatic disease. Likely degenerative joint centered uptake at the right foot and at the bilateral elbows and sternoclavicular joints. Incr eased uptake at the lower cervical spine also likely degenerative in etiology with severe lower cervi alon spondylosis evident on the cephalad-most images of the chest. IMPRESSION: 1. Interval increase in a large region of moderate increased calvarial uptake to the right of the srinivasan lolis suspicious for progression of metastatic disease. 2. No interval change in additional regions of mild to moderate increased uptake in the pelvis and pr oximal right femur consistent with metastatic disease. Reviewed, dictated and finalized at location [facility]. IMPRESSION: 1. Interval increase in a large region of moderate increased calvarial uptake t o the right of the vertex suspicious for progression of metastatic disease. 2. No interval change in additional regions of mild to moderate increased uptak e in the pelvis and proximal right femur consistent with metastatic disease.
[2022-04-19 09:06] LABS: Estimated Glomerular Filt Rate > 60
== END 2022-04-19 08:27 | disposition home or self-care (01) ==
PROVIDERS: PCP Family Medicine; Visit Provider Internal Medicine Hematology & Oncology
DX: C15.5 Malignant neoplasm of lower third of esophagus (principal); J90 Pleural effusion, not elsewhere classified; R91.8 Other nonspecific abnormal finding of lung field
CPT/HCPCS: 71260; 74177; 78306; A9561; Q9967